=== PATIENT | male | born 2000 | race Hispanic/Latino ===

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

== ENCOUNTER 2023-03-12 10:13 | Emergency (ER) | payer BC ==
--- OUTSIDE RECORDS SUMMARY | 2023-03-12 10:17 | XMS REPORT | Continuity of Care Document ---
:2000 Author Organization [facility] t Address [address] [facility] [address] [place] [address] Care Team Providers Name Role Phone CHUCKY ACOSTA Primary Care Physician Unavailable CARRIE CUELLAR Attending Clinician Unavailable Lab, Ang - Db Attending Clinician Unavailable Carrie Nava Attending Clinician CHUCKY ACOSTA Attending Clinician Unavailable GAIL JAMISON Attending Clinician Unavailable Gail Jamison MD Attending Clinician [phone] YARIEL DONALDSON Attending Clinician Unavailable Pathology Attending Clinician Unavailable PATHOLOGY Attending Clinician Unavailable Doctor Unassigned, [place] Attending Clinician Unavailable Chucky Valencia Attending Clinician Dian DAVISON, Sendil K.H. Attending Clinician GIDEON BIGGS K.H. Attending Clinician Unavailable REGINA RESTREPO Attending Clinician Unavailable Regina Restrepo MD Attending Clinician Edelmira Vargas MD Attending Clinician EDELMIRA VARGAS Attending Clinician Unavailable Evin Nick Attending Clinician [phone] Draw, [facility] Attending Clinician Unavailable George Arango MD Attending Clinician EVIN NICHOLSON Attending Clinician Unavailable Filomena Oconnor Attending Clinician Unavailable LIZZ LUNA Attending Clinician Unavailable Ang-Ped_Temp Attending Clinician Unavailable Victor Manuel SPORTS MEDICINE MASSEUR, Lizz Attending Clinician Margi Stokes Attending Clinician ALICE CHAND Attending Clinician Unavailable Alice Chen Attending Clinician Braeden Morales Attending Clinician [facility] Attending Clinician Unavailable BRAEDEN MARTINEZ Attending Clinician Unavailable MARGI GRIMALDO Attending Clinician Unavailable ALICE CHAND Admitting Clinician Unavailable Payers Payer Name Policy Type Policy Number Effective Date Expiration Date S oni BCBS FED SELECT [id number] 2019 00:00:00 [employer] [id number] 2016 00:00:00 CARE CHIP Problems Condition Condition Condition Status Onset Resolution Last Treating Co mments Source Name Details Category Date Date Treatment Clinician Date Anxiety Anxiety Disease Active Univers 4-04 ity of 00:00: [place] [address] Medical Branch Panic Panic Disease Active 2021-04 Univers attacks attacks 1-29 ity of 00:00: [place] [address] Medical Branch Encounter Encounter Disease Active Uni vers to to 4-19 ity of establish establish 00:00: [address] Dizziness Dizziness Disease Active Uni vers 4-19 ity of 00:00: [place] [address] Medical [place] Anxiety Anxiety Disease Active Last Univers disorder, disorder, 07-01 Assessmen i ty of unspecifie unspecifie 00:00: t & Plan: [place] d type d type 00 [facility] Medical g of this Branch note might be different from the original. Oleg is having breakthro ugh anxiety and "panic attacks" in spite of taking fluoxetin e 20 mg daily. He has some nausea/vo miting with episodes. Denies abdominal pain. He denies SI/HI. 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 His father is his closest support person.Pl an:After discussin g treatment options - decided to switch to escitalop gary 20 mg daily.Pot ential side effects reviewed. Recommend ed that he resume counselin g and gave resources .Continue to try to improve the health of the diet.Regu lar exercise can also be helpful.W ill schedule short term follow up. History of History of Disease Active U nivers being being 3-06 ity of tatooed tatooed 00:00: [place] [address] Medical Branch Elevated Elevated Disease Active Last Unive rs blood blood 3-06 Assessmen ity of pressure pressure 00:00: t & Plan: Ron[place] as reading reading 00 Formattin Medic al without without g of this Branc h diagnosis diagnosis note of of might be hypertensi hypertensi different on on from the original. He has history of elevated blood pressure readings - cardiolog y saw him and feels this is related to his anxiety. Normal cardiac work up. Plan:Will monitor as we optimize his treatment for anxiety.A void caffiene and reduce salt in the diet. Allergies, Adverse Reactions, Alerts Allergy Allergy Status Severity Reaction(s) Onset Inactive Treating Comm ents Source Name Type Date Date Clinician NO KNOWN Drug Active Univers ALLERGIE Class ity of [facility] [place] [facility] Social History Social Habit Start Date Stop Date Quantity Comments Source History of tobacco Cigarette Smoker University of use [place] [facility] History SDUT University o f Alcohol Comment [place] [facility] Gender identity Universit y of [facility] Branch Sexual orientation Univer sity of [place] [facility] History SDUT University o f Alcohol Std Drinks [place] [facility] History SDUT University o f Alcohol Binge [place] [facility] Alcohol intake 2023-01-13 2023-01-13 Lifetime University of 00:00:00 00:00:00 non-drinker [facility] (finding) Branch Exposure to 2022-08-19 2022-08-29 Not sure University SARS-CoV-2 (event) 00:00:00 11:41:00 [place] [facility] History of Social 2022-07-30 2022-07-30 Univers ity of function 00:00:00 00:00:00 [place] [facility] Tobacco use and 2021-08-14 2021-08-14 Smokeless Universit y of exposure 00:00:00 00:00:00 tobacco non-user [facility] dical Branch History SDOH 2019-07-02 2019-07-02 1 University o f Alcohol Frequency 00:00:00 00:00:00 [facility] edical Branch Sex Assigned At [birth year] Universit y of 00:00:00 00:00:00 [facility] Smoking Status Start Date Stop Date Source Occasional tobacco smoker 2021-08-14 00:00[facility] Medications Ordered Filled Start Stop Current Ordering Indication Dosage Frequency Signature Comments Components Source Medication Medication Date Date Medication? Clinician (SIG) Name Name FLUoxetine Yes [id number] 20mg Take 1 U nivers 20 mg 9-18 tablet by ity of tablet 00:00: mouth in [place] the Medical morning. Branch FLUoxetine Yes [id number] 20mg Take 1 U nivers 20 mg 9-18 tablet by ity of tablet 00:00: mouth in [place] the Medical morning. Branch FLUoxetine Yes [id number] 20mg Take 1 U nivers 20 mg 9-18 tablet by ity of tablet 00:00: mouth in [place] the Medical morning. Branch omeprazole Yes [id number] 40mg Take 1 Univers 40 mg 8-16 capsule by ity of capsule 00:00: mouth in [place] the Medical morning. Branch FLUoxetine Yes [id number] 10mg Take 1 U nivers 10 mg 8-16 tablet by ity of tablet 00:00: mouth in [place] the Medical morning. Branch ondansetron Yes [id number] 4mg Take 1 Univers 4 mg 8-16 tablet by ity of disintegrat 00:00: mouth [place] ing tablet 00 every 8 Medica l (eight) Branch hours as needed for Nausea and Vomiting (N/V). omeprazole Yes [id number] 40mg Take 1 Univers 40 mg 8-16 capsule by ity of capsule 00:00: mouth in [place] the Medical morning. Branch FLUoxetine 0 Yes [id number] 10mg Take 1 U nivers 10 mg 8-16 tablet by ity of tablet 00:00: mouth in [place] the Medical morning. Branch ondansetron Yes [id number] 4mg Take 1 Univers 4 mg 8-16 tablet by ity of disintegrat 00:00: mouth [place] ing tablet 00 every 8 Medica l (eight) Branch hours as needed for Nausea and Vomiting (N/V). omeprazole 2022-0 Yes [id number] 40mg Take 1 Univers 40 mg 8-16 capsule by ity of capsule 00:00: mouth in [place] 00 the Medical morning. [place] ondansetron 2022-0 Yes [id number] 4mg Take 1 Univers 4 mg 8-16 tablet by ity of disintegrat 00:00: mouth [place] ing tablet 00 every 8 Medica l (eight) Branch hours as needed for Nausea and Vomiting (N/V). omeprazole 2022-0 Yes [id number] 40mg Take 1 Univers 40 mg 8-16 capsule by ity of capsule 00:00: mouth in [place] 00 the Medical morning. [place] ondansetron 2022-0 Yes [id number] 4mg Take 1 Univers 4 mg 8-16 tablet by ity of disintegrat 00:00: mouth [place] ing tablet 00 every 8 Medica l (eight) Branch hours as needed for Nausea and Vomiting (N/V). omeprazole 2022-0 Yes [id number] 40mg Take 1 Univers 40 mg 8-16 capsule by ity of capsule 00:00: mouth in [place] 00 the Medical morning. [place] ondansetron 2022-0 Yes [id number] 4mg Take 1 Univers 4 mg 8-16 tablet by ity of disintegrat 00:00: mouth [place] ing tablet 00 every 8 Medica l (eight) Branch hours as needed for Nausea and Vomiting (N/V). FLUoxetine 2022-0 2022- No [id number] 10mg Take 1 Univers 10 mg 8-16 09-18 tablet by ity of tablet 00:00: 00:00 mouth in [place] 00 :00 the Medical morning. [place] FLUoxetine 2022-0 2022- No [id number] 10mg Take 1 Univers 10 mg 8-16 09-18 tablet by ity of tablet 00:00: 00:00 mouth in [place] 00 :00 the Medical morning. [place] ESCITALOPRA 2022-0 Yes [id number] TAKE 1 Univers M OXALATE 4-07 TABLET BY ity o f 10 mg 00:00: MOUTH [place] tablet 00 EVERY DAY Medical IN THE [place] MORNING ESCITALOPRA 2022-0 Yes [id number] TAKE 1 Univers M OXALATE 4-07 TABLET BY ity o f 10 mg 00:00: MOUTH [place] tablet 00 EVERY DAY Medical IN THE [place] MORNING ESCITALOPRA 2022-0 Yes [id number] TAKE 1 Univers M OXALATE 4-07 TABLET BY ity o f 10 mg 00:00: MOUTH [place] tablet 00 EVERY DAY Medical IN THE [facility] ESCITALOPRA 2022- No [id number] TAKE 1 Univers M OXALATE 4-07 08-16 TABLET BY ity of 10 mg 00:00: 00:00 MOUTH [place] tablet 00 :00 EVERY DAY Medical IN THE [facility] ESCITALOPRA 2022- No [id number] TAKE 1 Univers M OXALATE 4-07 08-16 TABLET BY ity of 10 mg 00:00: 00:00 MOUTH [place] tablet 00 :00 EVERY DAY Medical IN THE [facility] escitalopra 2021-04 Yes [id number] 10mg Take 1 Univers m oxalate 1-29 tablet by ity o f 10 mg 00:00: mouth in [place] tablet 00 the Medical morning. [place] escitalopra 2021-04 Yes [id number] 10mg Take 1 Univers m oxalate 1-29 tablet by ity o f 10 mg 00:00: mouth in [place] tablet 00 the Medical morning. [place] escitalopra 2021-04 Yes [id number] 10mg Take 1 Univers m oxalate 1-29 tablet by ity o f 10 mg 00:00: mouth in [place] tablet 00 the Medical morning. [place] escitalopra 2021-04 Yes [id number] 10mg Take 1 Univers m oxalate 1-29 tablet by ity o f 10 mg 00:00: mouth in [place] tablet 00 the Medical morning. [place] escitalopra 2021-04 Yes [id number] 10mg Take 1 Univers m oxalate 1-29 tablet by ity o f 10 mg 00:00: mouth in [place] tablet 00 the Medical morning. [place] escitalopra 2021-04 Yes [id number] 10mg Take 1 Univers m oxalate 1-29 tablet by ity o f 10 mg 00:00: mouth in [place] tablet 00 the Medical morning. [place] escitalopra 2021-04- No [id number] 10mg Take 1 Univers m oxalate 1-29 04-07 tablet by ity of 10 mg 00:00: 00:00 mouth in [place] tablet 00 :00 the Medical morning. [place] busPIRone 2021-04- No [id number] 10mg Take 1 Univers 10 mg 1-29 12-30 tablet by ity of tablet 00:00: 05:59 mouth 2 [place] 00 :00 (two) Medical times [place] daily as needed (anxiety) for up to 30 days. busPIRone 2021-04- No [id number] 10mg Take 1 Univers 10 mg 1-29 12-30 tablet by ity of tablet 00:00: 05:59 mouth 2 [place] 00 :00 (two) Medical times Branch daily as needed (anxiety) for up to 30 days. busPIRone 2021-04- No [id number] 10mg Take 1 Univers 10 mg 1-29 12-30 tablet by ity of tablet 00:00: 05:59 mouth 2 [place] 00 :00 (two) Medical times Branch daily as needed (anxiety) for up to 30 days. escitalopra 2021-04 Yes [id number] 10mg Take 1 Univers m oxalate 0-04 tablet by ity o f 10 mg 00:00: mouth in [place] tablet 00 the Medical morning. [place] escitalopra 2021-04 Yes [id number] 10mg Take 1 Univers m oxalate 0-04 tablet by ity o f 10 mg 00:00: mouth in [place] tablet 00 the Medical morning. [place] escitalopra 2021-04 Yes [id number] 10mg Take 1 Univers m oxalate 0-04 tablet by ity o f 10 mg 00:00: mouth in [place] tablet 00 the Medical morning. [place] escitalopra 2021-04- No [id number] 10mg Take 1 Univers m oxalate 0-04 11-29 tablet by ity of 10 mg 00:00: 00:00 mouth in [place] tablet 00 :00 the Medical morning. [place] escitalopra 2021-04- No [id number] 10mg Take 1 Univers m oxalate 0-04 11-29 tablet by ity of 10 mg 00:00: 00:00 mouth in [place] tablet 00 :00 the Medical morning. [place] escitalopra 2021-04- No [id number] 10mg Take 1 Univers m oxalate 0-04 11-29 tablet by ity of 10 mg 00:00: 00:00 mouth in [place] tablet 00 :00 the Medical morning. Branch escitalopra Yes [id number] 10mg Take 1 Univers m oxalate 7-05 tablet by ity o f 10 mg 00:00: mouth [place] tablet 00 daily. Medical Branch escitalopra Yes [id number] 10mg Take 1 Univers m oxalate 7-05 tablet by ity o f 10 mg 00:00: mouth [place] tablet 00 daily. Medical Branch escitalopra Yes [id number] 10mg Take 1 Univers m oxalate 7-05 tablet by ity o f 10 mg 00:00: mouth [place] tablet 00 daily. Medical Branch escitalopra Yes [id number] 10mg Take 1 Univers m oxalate 7-05 tablet by ity o f 10 mg 00:00: mouth [place] tablet 00 daily. Medical Branch escitalopra 2021- No [id number] 10mg Take 1 Univers m oxalate 7-05 10-04 tablet by ity of 10 mg 00:00: 00:00 mouth [place] tablet 00 :00 daily. Medical Branch escitalopra 2021- No [id number] 10mg Take 1 Univers m oxalate 7-05 10-04 tablet by ity of 10 mg 00:00: 00:00 mouth [place] tablet 00 :00 daily. Medical Branch escitalopra 2021- No [id number] 10mg Take 1 Univers m oxalate 7-05 10-04 tablet by ity of 10 mg 00:00: 00:00 mouth [place] tablet 00 :00 daily. Medical Branch Vital Signs Vital Name Observation Time Observation Value Comments Source Systolic blood 2023-01-13 19:21:00 123 mm[Hg] Univer sity of [facility] Diastolic blood 2023-01-13 19:21:00 73 mm[Hg] Unive rsity of [facility] Heart rate 2023-01-13 19:21:00 75 /min [facility] Body height 2023-01-13 19:21:00 166.4 cm [facility] Body weight 2023-01-13 19:21:00 63.685 kg [facility] BMI 2023-01-13 19:21:00 23.01 kg/m2 [facility] Oxygen saturation in 2023-01-13 19:21:00 97 /min [facility] Arterial blood by [facility] Pulse oximetry Branch Systolic blood 2022-12-11 19:50:00 118 mm[Hg] Univer sity of [facility] Diastolic blood 2022-12-11 19:50:00 60 mm[Hg] Unive rsity of pressure [place] [facility] Heart rate 2022-12-11 19:50:00 60 /min Universi ty of [place] [facility] Respiratory rate 2022-12-11 19:50:00 18 /min Univ ersity of [place] [facility] Body height 2022-12-11 19:50:00 165.1 cm Universi ty of [place] [facility] Body weight 2022-12-11 19:50:00 63.504 kg Universi ty of [place] [facility] BMI 2022-12-11 19:50:00 23.30 kg/m2 Universi ty of [place] [facility] Oxygen saturation in 2022-12-11 19:50:00 97 /min University of Arterial blood by [place] [facility] jimi Pulse oximetry Branch Systolic blood 2022-07-30 21:07:00 125 mm[Hg] Univer sity of pressure [place] [facility] Diastolic blood 2022-07-30 21:07:00 75 mm[Hg] Unive rsity of pressure [place] [facility] Heart rate 2022-07-30 21:07:00 66 /min Universi ty of [place] [facility] Body temperature 2022-07-30 21:07:00 36.72 Negrita Univ ersity of [place] [facility] Body height 2022-07-30 21:07:00 160 cm Universi ty of [place] [facility] Body weight 2022-07-30 21:07:00 64.864 kg Universi ty of [place] [facility] BMI 2022-07-30 21:07:00 25.33 kg/m2 Universi ty of [place] [facility] Oxygen saturation in 2022-07-30 21:07:00 97 /min University of Arterial blood by [facility] Pulse oximetry Branch Systolic blood 2022-03-26 17:05:00 133 mm[Hg] Univer sity of pressure [place] [facility] Diastolic blood 2022-03-26 17:05:00 75 mm[Hg] Unive rsity of pressure [place] [facility] Heart rate 2022-03-26 17:05:00 77 /min Universi ty [facility] [place] [facility] Body height 2022-03-26 17:05:00 160 cm Universi ty [facility] [place] [facility] Body weight 2022-03-26 17:05:00 63.277 kg Universi ty [facility] [place] [facility] BMI 2022-03-26 17:05:00 24.71 kg/m2 Universi ty of [place] [facility] Oxygen saturation in 2022-03-26 17:05:00 96 /min University of Arterial blood by [facility] Pulse oximetry Branch Systolic blood 2022-01-29 15:55:00 111 mm[Hg] Univer sity of pressure [facility] Branch Diastolic blood 2022-01-29 15:55:00 67 mm[Hg] Unive rsity of pressure [facility] Branch Heart rate 2022-01-29 15:55:00 77 /min Universi ty of [place] [facility] Body height 2022-01-29 15:55:00 165.1 cm Universi ty of [place] [facility] Body weight 2022-01-29 15:55:00 63.141 kg Universi ty of [place] [facility] BMI 2022-01-29 15:55:00 23.16 kg/m2 Universi ty of [facility] Oxygen saturation in 2022-01-29 15:55:00 98 /min University of Arterial blood by [facility] Pulse oximetry Branch Systolic blood 2021-08-14 16:20:00 130 mm[Hg] Univer sity of pressure [facility] Branch Diastolic blood 2021-08-14 16:20:00 66 mm[Hg] Unive rsity of pressure [facility] Branch Heart rate 2021-08-14 16:20:00 65 /min Universi ty of [place] [facility] Body height 2021-08-14 16:20:00 165.1 cm Universi ty of [place] [facility] Body weight 2021-08-14 16:20:00 63.56 kg Universi ty [facility] [place] [facility] BMI 2021-08-14 16:20:00 23.32 kg/m2 Universi ty of [facility] Branch Body mass index 2021-08-14 16:20:00 58.42 % Unive rsity of (BMI) [Percentile] [place] Med ical Per age and sex Branch Oxygen saturation in 2021-08-14 16:20:00 97 /min University of Arterial blood by [facility] Pulse oximetry Branch Procedures Procedure Date / Time Performing Clinician Source Performed 2022-12-11 20:21:54 Owen Jamison o f [place] CONJUGATE (PREVNAR 20) Gail Zheng B ranch VACCINE [facility] PATIENT FINANCIAL 2022-08-29 16:42:46 Doctor Unassigned, No [facility] POLICY Name Medical Branch ASSIGNMENT OF BENEFITS 2022-01-29 15:51:23 Doctor Unassigned, No [facility] Name [facility] MEDICAL 2021-08-24 05:01:00 Doctor Unassigned, No [facility] RELEASE/CLEARANCE FORMS Name [facility] Encounters Start End Encounter Admission Attending Care Care Encounter Source Date/Time Date/Time Type Type Clinicians Facility Department ID 2023-04-14 2023-04-14 Outpatient R POLO [facility] [id number] Univers 14:30:00 14:30:00 CARRIE ortiz [facility] 2023-01-14 2023-01-14 Crap Game Box Person Lab, Ang - Db [facility] 1.2.840.1 [id number] Univers 08:45:00 09:00:00 Visit Carrie Cuellar 350.1.13.10 ity of [place] 4.2.7.2.686 Ronny as ANGELA?BLEA [id number] Ct carloskitty [facility] [address] [place] MEDICAL OFFICE [facility] 2023-01-14 2023-01-14 Outpatient R [facility] [id number] Univers 08:45:00 08:50:12 CARRIE ity [facility] 2023-01-13 2023-01-13 [facility] 1.2.840.114 [id number] Univers 14:30:00 14:55:38 Visit Carrie ANDERSON 350.1.13.10 it y of [place] 4.2.7.2.686 Ronny as ANGELA?BLEA [id number] Ct [address] MEDICAL OFFICE [facility] 2023-01-13 2023-01-13 Outpatient R [facility] [id number] Univers 14:30:00 14:55:38 CARRIE cisnerossilviano [facility] 2022-12-25 2022-12-25 Outpatient R KARLA [facility] [id number] Univers 15:30:00 15:30:00 CHUCKY ortiz [facility] 2022-12-11 2022-12-11 Outpatient R YAQUELIN [facility] [id number] Univers 14:40:00 15:29:54 , GAIL shore [facility] 2022-12-11 2022-12-11 Office Yaquelin [facility] 1.2.840.114 [id number] Univers 14:40:00 15:29:54 Visit , Gail [facility] [id number] ity of [place] 4.2.7.2.686 Ronny as ANGELA?BLEA [id number] [address] MEDICAL OFFICE [facility] 2022-08-29 2022-08-29 Crap Game Box Person Lab, Ang - Db [facility] 1.2.840.1 [id number] Univers 12:15:00 12:30:00 Visit Pathology HEALTH 350.1.13.10 ity of [place] 4.2.7.2.686 Ronny as ANGELA?BLEA [id number] [address] OFFICE [facility] 2022-08-29 2022-08-29 Outpatient R PATHOLOGY [facility] [id number] Univers 12:15:00 12:15:00 ity of [facility] 2022-08-29 2022-08-29 Orders Doctor JILLIAN 1.2.840.114 [id number] Univers 00:00:00 00:00:00 Only Unassigned, VALE 350.1.13.10 ity of [place] [facility] 4.2.7.2.686 Ronny as [id number] [address] 2022-08-02 2022-08-02 Refill Karla [facility] 1.2.840.114 [id number] Univers 00:00:00 00:00:00 Chucky HEALTH [id number] it y of [place] 4.2.7.2.686 Ornny as ANGELA?BLEA [id number] [address] OFFICE [facility] 2022-07-30 2022-07-30 Crap Game Box Person Lab, Ang - Db [facility] 1.2.840.1 [id number] Univers 16:30:00 16:45:00 Visit Chucky Acosta HEALTH 350.1.13.10 [facility] 4.2.7.2.686 Ronny as ANGELA?BLEA [id number] [address] OFFICE [facility] 2022-07-30 2022-07-30 Outpatient R KARLA [facility] [id number] Univers 16:00:00 16:32:16 CHUCKY ortiz [facility] 2022-07-30 2022-07-30 [facility] 1.2.840.114 [id number] Univers 16:00:00 16:32:16 Visit Chucky ANDERSON 350.1.13.10 it [facility] 4.2.7.2.686 Ronny as ANGELA?BLEA [id number] [address] OFFICE [facility] 2022-07-15 2022-07-15 Outpatient R KARLA [facility] [id number] Univers 08:30:00 08:30:00 CHUCKY ortiz [facility] 2022-05-24 2022-05-24 [facility] [id number] Univers 11:00:00 11:00:00 CHUCKY ortiz [facility] 2022-03-26 2022-03-26 [facility] [id number] Univers 11:00:00 11:20:04 CHUCKY ortiz [facility] 2022-03-26 2022-03-26 [facility] 1.2.840.114 [id number] Univers 11:00:00 11:20:[address] [facility] [id number] it [facility] [id number] Ronny as ANGELA?BLEA [id number] [address] OFFICE [facility] 2022-01-29 2022-01-29 [facility] [id number] Univers 11:00:00 11:21:02 CHUCKY ortiz [facility] 2022-01-29 2022-01-29 [facility] 1.2.840.114 [id number] Univers 11:00:00 11:21:02 Visit Chucky ANDERSON 350.1.13.10 it y of [place] 4.2.7.2.686 Ronny as ANGELA?BLEA [id number] [address] OFFICE [facility] 2022-01-29 2022-01-29 Orders Doctor WALSH 1.2.840.114 [id number] Univers 00:00:00 00:00:00 Only Unassigned, VALE 350.1.13.10 ity of [place] [facility] 4.2.7.2.686 Ronny as [id number] [address] 2021-10-10 2021-10-10 Outpatient R KARLA [facility] [id number] Univers 10:30:00 10:30:00 CHUCKY ortiz [facility] 2021-10-02 2021-10-02 Outpatient R KARLA [facility] [id number] Univers 08:30:00 08:30:00 CHUCKY diana [facility] 2021-10-02 2021-10-02 Outpatient R KARLA [facility] [id number] Univers 08:30:00 08:30:00 CHUCKY ortiz [facility] 2021-10-01 2021-10-01 Outpatient R [facility]LA [facility] [id number] Univers 09:30:00 09:30:00 CHUCKY [facility] 2021-08-24 2021-08-24 Orders Doctor WALSH 1.2.840.114 [id number] Univers 00:00:00 00:00:00 Only Unassigned, VALE 350.1.13.10 ity of [place] [facility] 4.2.7.2.686 Ronny as [id number] [address] 2021-08-23 2021-08-23 Telephone Dian AZSHANT [id number] Univers 00:00:00 00:00:00 Sendluisa [place] 350.1.13.10 ity [facility] 4.2.7.2.686 [place] [id number] [place] dical [facility] 059 [facility] 2021-08-15 2021-08-15 [facility] [id number] Univers 16:30:00 16:30:00 SENDIL ity [facility] 2021-08-15 2021-08-15 [facility] [id number] Univers 11:00:35 11:44:00 [facility]14 2021-08-14 Office Dian AZSHANT 1.2.840.114 [id number] Univers 11:30:00 13:29:12 Visit Gideon MarieDeborahImaniDeborah [facility] [id number] ity of [facility] [id number] [phone] Ct dewayne FINE 059 [facility] 2021-08-14 2021-08-14 Outpatient R DIAN [facility] [id number] Univers 11:30:00 11:30:00 SENDIL ameliasilviano [facility] 2021-08-14 2021-08-14 Crap Game Box Person Lab, Ang - [facility] 1.2.840.1 [id number] Univers 09:45:00 10:00:[address] [facility] [id number] ity of [facility] [id number] Ronny as ANGELA?BLEA [phone] Ct dewayne [place] 353 [facility] OFFICE [facility] 2021-08-14 2021-08-14 Outpatient R KARLA [facility] [id number] Univers 08:30:00 09:33:33 CHUCKY diana [facility] 2021-08-14 2021-08-14 [facility] 1.2.840.114 [id number] Univers 08:30:00 09:33:[address] [facility] [id number] it y of [facility] [id number] Ronny as ANGELA?BLEA [phone] [facility] [place] 044 [facility] OFFICE [facility] 2021-08-14 2021-08-14 Outpatient [facility] [id number] Univers 08:30:00 09:33:33 CHUCKY diana [facility] 2020-11-29 2020-11-29 Outpatient R [facility] [id number] Univers 15:40:00 15:40:00 REGINA ortiz [facility] 2020-10-30 2020-10-30 Office [facility] 1.2.840.114 [id number] Univers 15:58:00 16:40:07 Visit Regina Morgan [id number] ity of [id number] [phone] [address] 2020-10-30 2020-10-30 Outpatient R LAURO [facility] [id number] Univers 16:00:00 16:00:00 REGINA ameliasilviano [facility] 2020-10-26 2020-10-26 Outpatient Vida RESTREPO [facility] [id number] Univers 09:30:00 09:30:00 REGINAKYLER ortiz [facility] 2020-10-19 2020-10-19 Telephone Lauro [facility] [id number] Univers 00:00:00 00:00:00 Regina [place] [id number] it[id number] [phone] [address] 2020-08-28 2020-08-28 Office [facility] 1.2.840.114 [id number] Univers 15:48:02 16:22:12 Visit Regina A [place] [id number] ity of [id number] [phone] [address] 2020-08-28 2020-08-28 Outpatient Vida RESTREPO [facility] [id number] Univers 15:40:00 15:40:00 REGINAKYLER ortiz [facility] 2020-08-01 2020-08-01 Outpatient Vida RESTREPO [facility] [id number] Univers 10:30:00 10:30:00 REGINA itsilviano [facility] 2020-07-25 2020-07-25 Office [facility] 1.2.840.114 [id number] 08:32:50 09:10:42 Visit Regina A [place] [id number] [place] [id number] Professio [phone] [address] 2020-07-25 2020-07-25 Office [facility] 1.2.840.114 [id number] Univers 08:32:50 09:10:42 Visit Regina A [place] [id number] ity of [id number] [phone] Ct dical nal 225 [facility] 2020-07-25 2020-07-25 Outpatient R LAURO [facility] [id number] Univers 08:30:00 08:30:00 REGINA ity of [facility] 2020-07-18 2020-07-18 Office [facility] 1.2.840.114 [id number] Univers 13:05:47 13:46:18 Visit Edelmira Morgan [id number] ity of [id number] [phone] Ct dical nal 059 [facility] 2020-07-18 2020-07-18 Outpatient R GABINO [facility] [id number] Univers 13:20:00 13:20:00 EDELMIRA ortiz o f [facility] 2020-07-18 2020-07-18 Telephone [facility] 1.2.446.011 [id number] Univers 00:00:00 00:00:00 Regina A [place] [id number] ity of [id number] [phone] Ct dicnh nal [address] [place] [address] 2020-06-26 2020-06-26 Telephone [facility] [id number] Univers 00:00:00 00:00:00 Regina A [place] [id number] ity of [id number] [phone] Ct dical nal 225 [facility] 2020-06-01 2020-06-01 Letter [facility] 1.2.840.114 [id number] Univers 00:00:00 00:00:00 (Out) Regina A [place] [id number] it[id number] [phone] Ct dical nal 225 [facility] 2020-05-03 2020-05-03 Office [facility] 1.2.840.114 [id number] Univers 10:03:03 11:27:46 Visit Regina [place] 350.1.13.10 ity of [place] [id number] [phone] [place] [address] [address] [facility] 2020-05-03 2020-05-03 Outpatient Vida RESTREPO [facility] [id number] Univers 10:30:00 10:30:00 REGINAKYLER ortiz [facility] 2020-04-26 2020-04-26 Outpatient Vida RESTREPO [facility] [id number] Univers 16:00:00 16:00:00 REGINA itsilviano [facility] 2020-01-16 2020-01-16 Refill Lauro [facility] 1.2.840.114 [id number] Univers 00:00:00 00:00:00 Reginakyler Morgan [id number] it[place] of [id number] [phone] [address] 2019-11-17 2019-11-17 Telephone [facility] 1.2.840.114 [id number] Univers 00:00:00 00:00:00 , [facility] [id number] [id number] [phone] [address] Office Building 2019-10-26 2019-10-26 Outpatient Vida RESTREPO [facility] [id number] Univers 12:30:00 12:30:00 REGINA ortiz [facility] 2019-10-26 2019-10-26 Telemedici [facility] 1.2.840.114 [id number] Univers 08:27:16 08:42:16 ne Visit Regina Morgan [id number] it[place] of [id number] [phone] [address] 2019-10-19 2019-10-19 Outpatient Vida RESTREPO [facility] [id number] Univers 15:20:00 15:20:00 REGINA itsilviano [facility] 2019-10-13 2019-10-13 Reffadumo Restrepo [facility] 1.2.840.114 [id number] Univers 00:00:00 00:00:00 Regina Morgan [id number] ity of [id number] [phone] Ct dical nal 225 [facility] 2019-10-04 2019-10-04 Crap Game Box Person Draw, Clc-Bls Lab [facility] 1.2.8 40.114 [id number] Univers 12:02:42 12:17:42 [facility] 350.1.13 .10 [place] [phone] [facility] [address] 2019-10-04 2019-10-04 [facility] 1.2.840.114 [id number] Univers 10:21:26 12:09:55 Visit , [facility] [id number] [id number] [phone] [facility] [address] 2019-10-04 2019-10-04 Office George Arango [facility] 1.2.840.114 [id number] Univers 11:09:10 11:39:10 Visit [facility] [id number] it [place] [phone] [facility] [address] 2019-10-04 2019-10-04 Outpatient R [facility] [id number] Univers 10:30:00 10:30:00 , [facility] ity of [facility] 2019-09-21 2019-09-21 Outpatient R [facility] [id number] Univers 14:00:00 14:00:00 ity of [facility] 2019-09-17 2019-09-17 Patient Oconnor, [facility] 1.2.840.114 [id number] Univers 00:00:00 00:00:[address] [facility] [id number] i ty of [place] 4.2.7.2.686 Ronny as Professio [phone] Me dical nal [address] One 2019-09-15 2019-09-15 Outpatient R LAURO [facility] [id number] Univers 15:00:00 15:00:00 REGINA ity [facility] 2019-09-14 2019-09-14 Telephone [facility] [id number] Univers 00:00:00 00:00:00 Regina Morgan 350.1.13.10 ity of [id number] [facility] [phone] Ct dical nal 225 [facility] 2019-09-07 2019-09-07 Outpatient R LIZZ LUNA [facility] [id number] Univers 10:00:00 10:00:00 ity of [facility] 2019-09-07 2019-09-07 Telemedici Ang-Ped_Temp [facility] 1.2.840.11 [id number] Univers 08:04:34 09:28:10 ne Visit Lizz Luna RECOVERY AGENT 350.1.13.10 ity of [place] [id number] Ronny as MATERNAL [phone] Med ical & CHILD [address] [place] [address] 2019-09-07 2019-09-07 Telephone [facility] 1.2.576.884 [id number] Univers 00:00:00 00:00:00 Margi RECOVERY AGENT [id number] it y of [place] [id number] Ronny as MATERNAL [phone] Med [facility] & CHILD [address] [place] [address] 2019-09-01 2019-09-01 Outpatient R MANNIE [facility] [id number] Univers 07:53:15 23:59:00 ALICE ity [facility] 2019-09-01 2019-09-01 [facility] 1.2.840.114 [id number] Univers 07:53:00 23:59:00 Encounter [facility] [id number] it[place] of [place] 4.2.7.2.686 [place] [phone] [place] [id number] Branch ([facility]) 2019-08-26 2019-08-26 Telephone [facility] [id number] Univers 00:00:00 00:00:00 Braeden Mk RECOVERY AGENT 350.1.13.10 it y of [place] [id number] Ronny as MATERNAL [phone] [facility] & [address] 2019-08-11 2019-08-11 Outpatient Vida [facility] [id number] Univers 12:30:00 12:30:00 REGINA ortiz [facility] 2019-08-09 2019-08-09 Rashid [facility] 1.2.840.114 [id number] Univers 00:00:00 00:00:00 Margi RECOVERY AGENT 350.1.13.10 it y of [place] [id number] Ronny as MATERNAL [phone] [facility] & [address] 2019-07-21 2019-07-21 Telemedicvinod [facility] 1.2.840.114 [id number] Univers 08:32:14 15:58:11 ne Visit , [facility] 350.1.13.10 [place] [phone] [address] Office [facility] 2019-07-21 2019-07-21 Outpatient Vida NICHOLSON [facility] [id number] Univers 10:30:00 10:30:00 , [facility] 2019-07-21 2019-07-21 Telephone [facility] [id number] Univers 00:00:00 00:00:00 [facility] 350.1.13.10 it [place] of [id number] [phone] [address] Office [facility] 2019-07-21 2019-07-21 Telephone [facility] [id number] Univers 00:00:00 00:00:00 [facility] 350.1.13.10 it [place] [phone] [address] Office [facility] 2019-07-15 2019-07-15 Outpatient R [facility] [id number] Univers 11:20:00 11:20:00 REGINA ortiz [facility] 2019-07-14 2019-07-14 Nurse Visit, SusanRmchp Nurse [facility] 1.2 .840.114 [id number] Univers 08:40:15 08:56:13 Visit Braeden Martinez RECOVERY AGENT [id number] ity of [facility] 4.2.7.2.686 Ronny as MATERNAL [phone] [facility] & CHILD [address] [place] [address] 2019-07-14 2019-07-14 Office Ang-Ped_Temp [facility] 1.2.840.114 [id number] Univers 07:52:30 08:56:01 Visit Braeden Martinez RECOVERY AGENT 350.1.13.10 ity of [facility] [id number] Ronny as MATERNAL [phone] [facility] & [address] 2019-07-14 2019-07-14 Outpatient Vida MARTINEZ [facility] [id number] Univers 08:00:00 08:00:00 [facility] 2019-07-02 2019-07-07 Geraldine Grimaldo [facility] 1.2.840.114 [id number] Univers 14:37:56 08:41:53 Encounter Margi RECOVERY AGENT 350.1.13.10 ity of [facility] [id number] Ronny as MATERNAL [phone] [facility] & [address] 2019-07-02 2019-07-06 Office Oscar [facility] 1.2.840.114 [id number] Univers 13:46:18 08:24:51 Visit Margi RECOVERY AGENT 350.1.13.10 it y of [facility] [id number] Ronny as MATERNAL [phone] [address] 2019-07-02 2019-07-02 Outpatient Vida GRIMALDO [facility] [id number] Univers 13:00:00 13:00:00 MARGI [facility] 2019-07-02 2019-07-02 Domenic [facility] 1.2.840.114 [id number] Univers 00:00:00 00:00:00 Only Unassigned, VALE 350.1.13.10 ity of [place] [facility] 4.2.7.2.686 Ronny as [phone] [facility] 009 Branch Results This patient has no known results.
--- NOTE | 2023-03-12 11:26 | ER ---
Nurse's Notes [facility] Name: Oleg Greenfield Age: 22 yrs Sex: Male : 2000 Arrival Date: 03/12/2023 Time: 10:13 Bed IW1 Private MD: Diagnosis: Viral infection, unspecified Presentation: 03/12 10:27 Chief complaint: Patient states: "2 days ago, I started feeling bad. I started having a mb9 bad headache, congested, cough, and flu symptoms". Coronavirus screen: Vaccine status: Patient reports being unvaccinated. Ebola Screen: No symptoms or risks identified at this time. Initial Sepsis Screen: Does the patient meet any 2 criteria? No. Patient's initial sepsis screen is negative. Does the patient have a suspected source of infection? No. Patient's initial sepsis screen is negative. Risk Assessment: Do you want to hurt yourself or someone else? Patient reports no desire to harm self or others. Onset of symptoms was March 12, 2023. 10:27 Method Of Arrival: Ambulatory 9 10:27 Acuity: TOÑITO 4 mb9 Triage Assessment: 10:29 General: Appears in no apparent distress. Behavior is calm, cooperative, appropriate mb9 for age. Pain: Denies pain. EENT: Nares are clear. Neuro: Damon Agitation-Sedation Scale (RASS): 0 - Alert and Calm Level of Consciousness is awake, alert, obeys commands, Oriented to person, place, time, situation, Appropriate for age. Cardiovascular: Patient's skin is warm and dry. Respiratory: Reports cough that is Airway is patent Respiratory effort is even, unlabored, Respiratory pattern is regular, symmetrical. GI: Reports nausea, Patient currently denies diarrhea, vomiting. : No signs and/or symptoms were reported regarding the genitourinary system. Derm: Skin is pink, warm \\T\\ dry. Musculoskeletal: Range of motion: intact in all extremities. Historical: - Allergies: 10: No Known Allergies; mb9 - Home Meds: 10: fluoxetine 20 mg Oral cap 1 cap once daily for Anxiety with Depression [Active]; mb9 - PMHx: 10:29 Anxiety; mb9 - PSHx: 10:29 None; mb9 - Immunization history:: Adult Immunizations up to date. - Social history:: Smoking status: Patient reports the use of cigarette tobacco products, smokes one-half pack cigarettes per day. Assessment: 10:30 Reassessment: see triage assessment. mb9 11:27 Reassessment: No changes from previously documented assessment. Patient and/or family mb9 updated on plan of care and expected duration. Pain level reassessed. Patient is alert, oriented x 3, equal unlabored respirations, skin warm/dry/pink. Vital Signs: 10:27 BP 125 / 65; Pulse 68; Resp 18; Temp 97.8(O); Pulse Ox 100% on R/A; Weight 74.84 kg; mb9 Height 5 ft. 5 in. ; 10:27 Body Mass Index 27.46 (74.84 kg, 165.1 cm) mb9 ED Course: 10:17 Patient arrived in ED. im 10:17 Fitz Powers MD is Attending Physician. ec2 10:27 Arm band placed on. mb9 10:28 COVID-19 SARS RT PCR Sent. bc6 10:28 Influenza Screen (a \\T\\ B) Sent. 6 10:29 Triage completed. mb9 11:27 Gretta Melton, ROSI is Primary Nurse. mb9 11:28 No provider procedures requiring assistance completed. Patient did not have IV access mb9 during this emergency room visit. Administered Medications: No medications were administered Outcome: 11:25 Discharge ordered by . ec2 11:27 Discharged to home ambulatory, mb9 11:27 Condition: stable 11:27 Discharge instructions given to patient, Instructed on discharge instructions, follow up and referral plans. Demonstrated understanding of instructions, follow-up care, medications, Prescriptions given X 1, 11:28 Patient left the ED. mb9 Signatures: Gretta Melton, ROSI RN mb9 Vee Erazo 6 Mary Quintana Fitz Powers MD MD ec2
--- NOTE | 2023-03-12 11:26 | EDPHYS ---
Physician Documentation [facility] Name: Oleg Greenfield Age: 22 yrs Sex: Male : 2000 Arrival Date: 03/12/2023 Time: 10:13 Bed IW1 Private MD: ED Physician Fitz Powers HPI: 03/12 10:31 This 22 yrs old Male presents to ER via Ambulatory with complaints of Flu ec2 Symptoms. 10:31 Patient arrives today due to concern for URI signs and symptoms. States that there have ec2 been multiple sick contacts around him, he is having congestion and cough. Patient reports some occasional nausea, no vomiting, no still p.o. intake. Denies any diarrhea symptoms. Reports he is a smoker. Denies any significant difficulty breathing.. Historical: - Allergies: 10:29 No Known Allergies; mb9 - Home Meds: 10:29 fluoxetine 20 mg Oral cap 1 cap once daily for Anxiety with Depression [Active]; mb9 - PMHx: 10:29 Anxiety; mb9 - PSHx: 10:29 None; mb9 - Immunization history:: Adult Immunizations up to date. - Social history:: Smoking status: Patient reports the use of cigarette tobacco products, smokes one-half pack cigarettes per day. ROS: 10:31 Constitutional: as per hpi ec2 Exam: 10:31 Constitutional: GEN: NAD Head: atraumatic Eyes: EOMI Ears: External ears are ec2 normal. CV: regular rate LUNGS: no respiratory distress, no wheezes, no rales, no rhonchi ABD: non-distended SKIN: no evidence of rashes MSK: no evidence of trauma NEURO: moves all extremities equally Vital Signs: 10:27 BP 125 / 65; Pulse 68; Resp 18; Temp 97.8(O); Pulse Ox 100% on R/A; Weight 74.84 kg; mb9 Height 5 ft. 5 in. ; 10:27 Body Mass Index 27.46 (74.84 kg, 165.1 cm) mb9 MDM: 10:17 Patient medically screened. ec2 10:31 Data reviewed: vital signs. ED course: Patient arrives today for URI signs and ec2 symptoms. Examination remarkable for nontoxic dividual with reassuring vital signs. Will obtain viral swab and reassess the patient. Suspect viral process causing the patient's symptoms. Low suspicion for pneumonia given lack of focal lung sounds. Low suspicion for other process like UTI or meningitis.. 11:19 ED course: Flu and COVID both negative. I suspect viral infection causing this ec2 symptoms. Will discharge home. Return precautions given.. 03/12 10:18 Order name: Influenza Screen (a \T\ B); Complete Time: 11:19 ec2 03/12 10:18 Order name: COVID-19 SARS RT PCR; Complete Time: : ec2 Administered Medications: No medications were administered Disposition Summary: 03/12/23 11:25 Discharge Ordered Notes: Location: Home ec2 Condition: Stable ec2 Diagnosis - Viral infection, unspecified ec2 Discharge Instructions: - Discharge Summary Sheet ec2 - Viral Illness, Adult ec2 Forms: - Work release form ec2 - Medication Reconciliation Form ec2 - Thank You Letter ec2 - Antibiotic Education ec2 - Prescription Opioid Use ec2 - Patient Portal Instructions ec2 - Leadership Thank You Letter ec2 Prescriptions: - Zofran 4 mg Oral Tablet - take 1 tablet ORAL route every 12 hours As needed; 20 tablet; Refills: 0, ec2 Product Selection Permitted Signatures: Dispatcher [employer] Gretta Rider RN RN mb9 Fitz Powers MD MD ec2
[2023-03-12 11:52] VITALS: BP 125/65; TEMP 97.8; O2SAT 100
[2023-03-12] MEDS ORDERED: dilTIAZem HCL 25 MG/5 ML VIAL IV ONE (13:34)
== END 2023-03-12 11:28 | disposition home or self-care (01) ==
LOC: ER 10:13
DX: B34.9 Viral infection, unspecified (principal); Z11.52 Encounter for screening for COVID-19; F17.210 Nicotine dependence, cigarettes, uncomplicated
CPT/HCPCS: 87635; 87804; 99283

== ENCOUNTER 2025-01-23 13:29 | Emergency (ER) | payer SELFPAY ==
--- OUTSIDE RECORDS SUMMARY | 2025-01-23 13:38 | XMS REPORT | Continuity of Care Document ---
Author Name Unknown Address [address] [facility] [place] [address] [facility] [place] Address [address] [facility] [place] [address] Care Team Providers Care Fire Management Specialist Name Role Phone CHUCKY ACOSTA Primary Care Physician Unavailab JULIAN Dunlap Attending Clinician Unavailable [id number] Attending Clinician Unavailable CHUCKY ACOSTA Attending Clinician Unavailable Chucky Valencia Attending Clinician [phone] Doctor Unassigned, [place] Attending Clinician U navailable Lab, Ang - Db Attending Clinician Unavailable MERVAT FONTENOT Attending Clinician UnaANA Nelson Attending Clinician Unavailable ANA MARS Attending Clinician Unavailable Ana Branch Attending Clinician [phone] ANGEL WHITEHEAD Attending Clinician Unavailable Angel Burris Attending Clinician [phone] PAMELLA BELLAMY Attending Clinician Unavailable Pamella Bellamy MD Attending Clinician [phone] ALENA DACOSTA Attending Clinician Unavailable Alena Dacosta NP Attending Clinician [phone] YARIEL DONALDSON Attending Clinician Unavailable CARRIE CUELLAR Attending Clinician Unavailable Lab, Ang - Db Attending Clinician Unavailable Carrie Nava Attending Clinician [phone] GAIL JAMISON Attending Clinician Latia Gail Curiel MD Attending Clinician Pathology Attending Clinician Unavailable PATHOLOGY Attending Clinician Unavailable Doctor Unassigned, [place] Attending Clinician U baldomero Chucky Valencia Attending Clinician [phone] Gideon Biggs MDHDeborah Attending Clinician + [phone] GIDEON BIGGS Attending Clinician UnavailREGINA Florence Attending Clinician UnavailRegina Florence MD Attending Clinician + [phone] Gabino DAVISON, Edelmira Attending Clinician [phone] EDELMIRA LLOYD Attending Clinician Unavailable Evin Nick Attending Clinician + Draw, Clc-Bls Lab Attending Clinician UnavailGeorge Menjivar MD Attending Clinician [phone] EVIN WASHINGTON Attending Clinician UnavaFilomena Rodriguez Attending Clinician Unavailable LUNALIZZ Attending Clinician Unavailable Ang-Ped_Temp Attending Clinician Unavailable Lizz Saldana Attending Clinician [phone] Margi Stokes Attending Clinician [phone] ALICE CHAND Attending Clinician Unavailable Alice Chen Attending Clinician [phone] Braeden Morales Attending Clinician [phone] Visit, Ang-Rmchp Nurse Attending Clinician Unava ilBRAEDEN Viera Attending Clinician Unavailable MARGI MOORE Attending Clinician Unavailable ANA MARS Admitting Clinician Unavailable ANGEL WHITEHEAD Admitting Clinician Unavailable ALICE CHAND Admitting Clinician Unavailable Payers Payer Name Policy Type Policy Number Effective Date Expirati on Date Source [employer] BENEF[employer] SYS/PPO 2 [id number] 2024 00:00:00 [facility] [id number] 2024 00:00:00 [facility] [id number] 2016 00:00:00 Problems Condition Name Condition Details Condition Category Status Onset Date Resolution Date Last Treatment Date Treating Clinician Comments Source Nausea Nausea Disease Active 1-15 00:00: 00 [facility] Anxiety Anxiety Disease Active 4-04 00:00: 00 [facility] Panic attacks Panic attacks Disease Active 2021-04 1-29 00:00: 00 [facility] Encounter to establish care Encounter to establish care Disease Active 08-14 00:00: 00 [facility] Dizziness Dizziness Disease Active 4 00:00: 00 [facility] Encounter to establish care Encounter to establish care Disease Active 08-14 00:00: 00 [facility] Anxiety disorder, unspecifie d type Anxiety disorder, unspecifie d type Disease Active 07-01 00:00: 00 Last Assessmen t & Plan: Formattin g of this note might be different from the original. Oleg is having breakthro ugh anxiety and "panic attacks" in spite of taking fluoxetin e 20 mg daily. He has some nausea/vo miting with episodes. Denies abdominal pain. He denies SI/HI. 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 [facility] History of being tatooed History of being tatooed Disease Active 07-01 00:00: 00 [facility] Elevated blood pressure reading without diagnosis of hypertensi on Elevated blood pressure reading without diagnosis of hypertensi on Disease Active 07-01 00:00: 00 Last Assessmen t & Plan: Formattin g of this note might be different from the original. He has history of elevated blood pressure readings - cardiolog y saw him and feels this is related to his anxiety. Normal cardiac work up. Plan:Will monitor as we optimize his treatment for anxiety.A void caffiene and reduce salt in the diet. [facility] History of drug dependence /abuse History of drug dependence /abuse Disease Resolve d 3-06 00:00: 00 2019-09-25 00:00:00 2019-09-25 12:14:04 [facility] Behavior control problems associated with use of recreation al drug Behavior control problems associated with use of recreation al drug Disease Resolve d -06 00:00: 00 2019-09-25 00:00:00 2019-09-25 12:14:08 [facility] Allergies, Adverse Reactions, Alerts Allergy Name Allergy Type Status Severity Reaction(s) Onset Date Inactive Date Treating Clinician Comments Source NO KNOWN ALLERGIE S Drug Class Active [facility] Social History Social Habit Start Date Stop Date Quantity Comments Source History of tobacco use 2024-07-25 00:00:00 Cigarette Smoker Nya Anton - External Sexual orientation K zeynep Anton - External History SDOH Alcohol Comment Cameron o [facility] Gender identity [facility] History SDOH Alcohol Std Drinks [facility] History SDOH Alcohol Binge [facility] History of Social function 2024-10-25 00:00:00 2024-10-25 00:00:00 Nya Anton - External Sex 2024-10-22 14:32:57 2024-10-22 14:32:57 Male (finding) Nya Anton - External Alcoholic beverage intake 2024-05-12 00:00:00 2024-05-12 00:00:00 Lifetime non-drinker (finding) [facility] Alcohol intake 2023-07-10 00:00:00 2023-07-10 00:00:00 Lifetime non-drinker (finding) [facility] Exposure to SARS-CoV-2 (event) 2022-08-19 00:00:00 2022-08-29 11:41:00 Not sure [facility] Tobacco use and exposure 2021-08-14 00:00:00 2021-08-14 00:00:00 Smokeless tobacco non-user [facility] History SDOH Alcohol Frequency 2019-07-02 00:00:00 2019-07-02 00:00:00 1 [facility] Sex assigned at 2002 00:00:00 2000 00:00:00 Nya Anton - External Smoking Status Start Date Stop Date Source Occasional tobacco smoker 2024-10-25 00:00:00 Nya Anton - External Medications Ordered Medication Name Filled Medication Name Start Date Stop Date Current Medication? Ordering Clinician Indication Dosage Frequency Signature (SIG) Comments Components Source amoxicillin 500 mg tablet 05-14 00:00: 00 05-14 00:00 :00 No [id number] 1000mg Take 2 tablets by mouth in the morning and 2 tablets in the evening. [facility] clarithromy rosa 500 mg tablet 05-14 00:00: 00 05-14 00:00 :00 No [id number] 500mg Take 1 tablet by mouth every 12 (twelve) hours. [facility] pantoprazol e 40 mg EC tablet 05-14 00:00: 00 05-14 00:00 :00 No [id number] 40mg Take 1 tablet by mouth in the morning and 1 tablet in the evening. [facility] SERTraline (ZOLOFT) 50 mg tablet 05-12 00:00: 00 Yes [id number] 50mg Take 1 tablet by mouth in the morning. [facility] busPIRone 10 mg tablet 05-12 00:00: 00 06-12 05:59 :00 No [id number] 10mg Take 1 tablet by mouth 2 (two) times daily as needed (anxiety) for up to 30 days. [facility] cefTRIAXone (ROCEPHIN) injection 500 mg 2023-04 16:45: 00 04-05 16:08 :00 No 500mg 500 mg, Intramuscu lar, ONCE, 1 dose, On Fri04/05/24 at 1045, TARIQ, Reason for Anti-Infec tive: Empiric Therapy for Suspected Infection, Empiric Therapy Site: Pelvic, Duration of therapy: Once (ED) [facility] cefdinir 300 mg capsule 2023-04 2-09 00:00: 00 04-13 05:59 :00 No [id number] 300mg Take 1 capsule by mouth every 12 (twelve) hours for 7 days. [facility] iopamidol (ISOVUE 370-500 mL) injection 100 mL 09-15 04:00: 00 09-15 04:00 :00 No [id number] 100mL 100 mL, Intravenou s, ONCE, 1 dose, On Fri09/15/23 at 2300, Routine [facility] ketorolac (TORADOL) injection 30 mg 09-15 02:45: 00 09-15 02:43 :00 No 30mg 30 mg, Slow IV Push, ONCE, 1 dose, On Fri09/15/23 at 2145, TARIQ [facility] ampicillin- sulbactam (UNASYN) 3 g in NaCl 0.9% (NS) 100 mL MINI-BAG 09-15 02:45: 00 09-15 03:38 :00 No 3g 3 g, IV Piggyback, ONCE, 1 dose, On Fri09/15/23 at 2145, Administer over 30 Minutes, 100 mL, Reason for Anti-Infec tive: Documented Infection, Documented Infection Site: HEENT, Duration of Therapy: Once (ED) [facility] dexamethaso ne sod phos PF injection 10 mg 09-15 01:59: 00 09-15 02:43 :00 No 10mg 10 mg, Slow IV Push, ONCE, 1 dose, On Fri09/15/23 at 2100, 1 mL [facility] amoxicillin -clavulanat e 875-125 mg per tablet 09-15 00:00: 00 05-12 00:00 :00 No [id number] 1{tbl} Take 1 tablet by mouth in the morning and 1 tablet in the evening. [facility] amoxicillin -clavulanat e 875-125 mg per tablet 09-14 00:00: 00 09-15 00:00 :00 No [id number] 1{tbl} Take 1 tablet by mouth in the morning and 1 tablet in the evening. Do all this for 10 days. [facility] ibuprofen (IBU) tablet 600 mg 07-09 11:00: 00 07-09 10:50 :00 No 600mg 600 mg, Oral, ONCE, 1 dose, On Fri07/10/23 at 0600, [facility] acetaminoph en (TYLENOL) tablet 650 mg 07-09 10:45: 00 07-09 10:45 :00 No 650mg 650 mg, Oral, ONCE, 1 dose, On Kailee 07/10/23 at 0545, [facility] ibuprofen (IBU) tablet 600 mg 07-06 19:15: 00 07-06 19:05 :00 No 600mg 600 mg, Oral, ONCE, 1 dose, On 07/07/23 at 1415, [facility] oseltamivir 75 mg capsule 07-06 00:00: 00 07-12 04:59 :00 No [id number] 75mg Take 1 capsule by mouth in the morning and 1 capsule in the evening. Do all this for 5 days. [facility] naproxen 500 mg tablet 07-06 00:00: 00 07-12 04:59 :00 No [id number] 500mg Take 1 tablet by mouth in the morning and 1 tablet in the evening. Take with meals. Do all this for 5 days. [facility] FLUoxetine 20 mg tablet 918 00:00: 00 05-12 00:00 :00 No [id number] 20mg Take 1 tablet by mouth in the morning. [facility] ondansetron 4 mg disintegrat ing tablet 16 00:00: 00 Yes [id number] 4mg Take 1 tablet by mouth every 8 (eight) hours as needed for Nausea and Vomiting (N/V). [facility] omeprazole 40 mg capsule 16 00:00: 00 05-14 00:00 :00 No [id number] 40mg Take 1 capsule by mouth in the morning. [facility] FLUoxetine 10 mg tablet 0 8-16 00:00: 00 01-13 00:00 :00 No [id number] 10mg Take 1 tablet by mouth in the morning. [facility] ESCITALOPRA M OXALATE 10 mg tablet 4-07 00:00: 00 12-11 00:00 :00 No [id number] TAKE 1 TABLET BY MOUTH EVERY DAY IN THE MORNING [facility] escitalopra m oxalate 10 mg tablet 2021-04 00:00: 00 08-02 00:00 :00 No [id number] 10mg Take 1 tablet by mouth in the morning. [facility] busPIRone 10 mg tablet 2021-04 00:00: 00 04-26 05:59 :00 No [id number] 10mg Take 1 tablet by mouth 2 (two) times daily as needed (anxiety) for up to 30 days. [facility] escitalopra m oxalate 10 mg tablet 2021-04 0-04 00:00: 00 03-26 00:00 :00 No [id number] 10mg Take 1 tablet by mouth in the morning. [facility] escitalopra m oxalate 10 mg tablet 7-05 00:00: 00 01-29 00:00 :00 No [id number] 10mg Take 1 tablet by mouth daily. [facility] Immunizations Ordered Immunization Name Filled Immunization Name Date Status Comments Source Flu Injectable MDCK Pres-Free (FLUCELVAX) 2024-05-12 00:00:00 Completed [facility] Pneumococcal 20 Conjugate, PCV20 (Prevnar 20) 2022-12-11 00:00:00 Completed [facility] Pneumococcal 20 Conjugate, PCV20 (Prevnar 20) 2022-12-11 00:00:00 Completed [facility] Pneumococcal 20 Conjugate, PCV20 (Prevnar 20) 2022-12-11 00:00:00 Completed [facility] Pneumococcal 20 Conjugate, PCV20 (Prevnar 20) 2022-12-11 00:00:00 Completed [facility] Influenza Virus Vaccine Quad .5 mL IM 6+ MO 2020-05-03 00:00:00 Completed [facility] Influenza Virus Vaccine Quad .5 mL IM 6+ MO 2020-05-03 00:00:00 Completed [facility] Influenza Virus Vaccine Quad .5 mL IM 6+ MO 2020-05-03 00:00:00 Completed [facility] Influenza Virus Vaccine Quad .5 mL IM 6+ MO 2020-05-03 00:00:00 Completed [facility] Influenza Virus Vaccine Quad .5 mL IM 6+ MO 2020-05-03 00:00:00 Completed [facility] Influenza Virus Vaccine Quad .5 mL IM 6+ MO 2020-05-03 00:00:00 Completed [facility] Influenza Virus Vaccine Quad .5 mL IM 6+ MO 2020-05-03 00:00:00 Completed [facility] Influenza Virus Vaccine Quad .5 mL IM 6+ MO 2020-05-03 00:00:00 Completed [facility] Influenza Virus Vaccine Quad .5 mL IM 6+ MO 2020-05-03 00:00:00 Completed [facility] Influenza Virus Vaccine Quad .5 mL IM 6+ MO 2020-05-03 00:00:00 Completed [facility] Influenza Virus Vaccine Quad .5 mL IM 6+ MO 2020-05-03 00:00:00 Completed [facility] Influenza Virus Vaccine Quad .5 mL IM 6+ MO 2020-05-03 00:00:00 Completed [facility] Influenza Virus Vaccine Quad .5 mL IM 6+ MO (FLUZONE/FLULAVAL/FL UARIX) 2020-05-03 00:00:00 Completed [facility] Influenza Virus Vaccine Quad .5 mL IM 6+ MO (FLUZONE/FLULAVAL/FL UARIX) 2020-05-03 00:00:00 Completed [facility] Influenza Virus Vaccine Quad .5 mL IM 6+ MO (FLUZONE/FLULAVAL/FL UARIX) 2020-05-03 00:00:00 Completed Meningococcal B, OMV 2019-09-15 00:00:00 Completed [facility] Meningococcal B, OMV 2019-09-15 00:00:00 Completed [facility] Meningococcal B, OMV 2019-09-15 00:00:00 Completed [facility] Meningococcal B, OMV 2019-09-15 00:00:00 Completed [facility] Meningococcal B, OMV 2019-09-15 00:00:00 Completed [facility] Meningococcal B, OMV 2019-09-15 00:00:00 Completed [facility] Meningococcal B, OMV 2019-09-15 00:00:00 Completed [facility] Meningococcal B, OMV 2019-09-15 00:00:00 Completed [facility] Meningococcal B, OMV 2019-09-15 00:00:00 Completed [facility] Meningococcal B, OMV 2019-09-15 00:00:00 Completed [facility] Meningococcal B, OMV 2019-09-15 00:00:00 Completed [facility] Meningococcal B, OMV 2019-09-15 00:00:00 Completed [facility] Meningococcal B, OMV 2019-09-15 00:00:00 Completed [facility] Meningococcal B, OMV 2019-09-15 00:00:00 Completed [facility] Meningococcal B, OMV 2019-09-15 00:00:00 Completed [facility] Meningococcal Polysaccharide (groups A, C, Y and W-135) conjugate vaccine (MCV4P) 2019-07-14 00:00:00 Completed [facility] Meningococcal B, OMV 2019-07-14 00:00:00 Completed [facility] Meningococcal Polysaccharide (groups A, C, Y and W-135) conjugate vaccine (MCV4P) 2019-07-14 00:00:00 Completed [facility] Meningococcal B, OMV 2019-07-14 00:00:00 Completed [facility] Meningococcal Polysaccharide (groups A, C, Y and W-135) conjugate vaccine (MCV4P) 2019-07-14 00:00:00 Completed [facility] Meningococcal B, OMV 2019-07-14 00:00:00 Completed [facility] Meningococcal Polysaccharide (groups A, C, Y and W-135) conjugate vaccine (MCV4P) 2019-07-14 00:00:00 Completed [facility] Meningococcal B, OMV 2019-07-14 00:00:00 Completed [facility] Meningococcal Polysaccharide (groups A, C, Y and W-135) conjugate vaccine (MCV4P) 2019-07-14 00:00:00 Completed [facility] Meningococcal B, OMV 2019-07-14 00:00:00 Completed [facility] Meningococcal Polysaccharide (groups A, C, Y and W-135) conjugate vaccine (MCV4P) 2019-07-14 00:00:00 Completed [facility] Meningococcal B, OMV 2019-07-14 00:00:00 Completed [facility] Meningococcal Polysaccharide (groups A, C, Y and W-135) conjugate vaccine (MCV4P) 2019-07-14 00:00:00 Completed [facility] Meningococcal B, OMV 2019-07-14 00:00:00 Completed [facility] Meningococcal Polysaccharide (groups A, C, Y and W-135) conjugate vaccine (MCV4P) 2019-07-14 00:00:00 Completed [facility] Meningococcal B, OMV 2019-07-14 00:00:00 Completed [facility] Meningococcal Polysaccharide (groups A, C, Y and W-135) conjugate vaccine (MCV4P) 2019-07-14 00:00:00 Completed [facility] Meningococcal B, OMV 2019-07-14 00:00:00 Completed [facility] Meningococcal Polysaccharide (groups A, C, Y and W-135) conjugate vaccine (MCV4P) 2019-07-14 00:00:00 Completed [facility] Meningococcal B, OMV 2019-07-14 00:00:00 Completed [facility] Meningococcal Polysaccharide (groups A, C, Y and W-135) conjugate vaccine (MCV4P) 2019-07-14 00:00:00 Completed [facility] Meningococcal B, OMV 2019-07-14 00:00:00 Completed [facility] Meningococcal Polysaccharide (groups A, C, Y and W-135) conjugate vaccine (MCV4P) 2019-07-14 00:00:00 Completed [facility] Meningococcal B, OMV 2019-07-14 00:00:00 Completed [facility] Meningococcal Polysaccharide (groups A, C, Y and W-135) conjugate vaccine (MCV4P) 2019-07-14 00:00:00 Completed [facility] Meningococcal B, OMV 2019-07-14 00:00:00 Completed [facility] Meningococcal Polysaccharide (groups A, C, Y and W-135) conjugate vaccine (MCV4P) 2019-07-14 00:00:00 Completed [facility] Meningococcal B, OMV 2019-07-14 00:00:00 Completed [facility] Meningococcal Polysaccharide (groups A, C, Y and W-135) conjugate vaccine (MCV4P) 2019-07-14 00:00:00 Completed Meningococcal B, OMV 2019-07-14 00:00:00 Completed HPV 2014-03-21 00:00:00 Completed [facility] HPV 2014-03-21 00:00:00 Completed [facility] HPV 2014-03-21 00:00:00 Completed [facility] HPV 2014-03-21 00:00:00 Completed [facility] HPV 2014-03-21 00:00:00 Completed [facility] HPV 2014-03-21 00:00:00 Completed [facility] HPV 2014-03-21 00:00:00 Completed [facility] HPV 2014-03-21 00:00:00 Completed [facility] HPV 2014-03-21 00:00:00 Completed [facility] HPV 2014-03-21 00:00:00 Completed [facility] HPV 2014-03-21 00:00:00 Completed [facility] HPV 2014-03-21 00:00:00 Completed [facility] HPV 2014-03-21 00:00:00 Completed [facility] HPV 2014-03-21 00:00:00 Completed [facility] HPV 2014-03-21 00:00:00 Completed HPV 2013-07-30 00:00:00 Completed [facility] HPV 2013-07-30 00:00:00 Completed [facility] HPV 2013-07-30 00:00:00 Completed [facility] HPV 2013-07-30 00:00:00 Completed [facility] HPV 2013-07-30 00:00:00 Completed [facility] HPV 2013-07-30 00:00:00 Completed [facility] HPV 2013-07-30 00:00:00 Completed [facility] HPV 2013-07-30 00:00:00 Completed [facility] HPV 2013-07-30 00:00:00 Completed [facility] HPV 2013-07-30 00:00:00 Completed [facility] HPV 2013-07-30 00:00:00 Completed [facility] HPV 2013-07-30 00:00:00 Completed [facility] HPV 2013-07-30 00:00:00 Completed [facility] HPV 2013-07-30 00:00:00 Completed [facility] HPV 2013-07-30 00:00:00 Completed HPV 2013-05-18 00:00:00 Completed [facility] Meningococcal Vaccine 2013-05-18 00:00:00 Completed [facility] TDAP 2013-05-18 00:00:00 Completed [facility] HPV 2013-05-18 00:00:00 Completed [facility] Meningococcal Vaccine 2013-05-18 00:00:00 Completed [facility] TDAP 2013-05-18 00:00:00 Completed [facility] HPV 2013-05-18 00:00:00 Completed [facility] Meningococcal Vaccine 2013-05-18 00:00:00 Completed [facility] TDAP 2013-05-18 00:00:00 Completed [facility] HPV 2013-05-18 00:00:00 Completed [facility] Meningococcal Vaccine 2013-05-18 00:00:00 Completed [facility] TDAP 2013-05-18 00:00:00 Completed [facility] HPV 2013-05-18 00:00:00 Completed [facility] Meningococcal Vaccine 2013-05-18 00:00:00 Completed [facility] TDAP 2013-05-18 00:00:00 Completed [facility] HPV 2013-05-18 00:00:00 Completed [facility] Meningococcal Vaccine 2013-05-18 00:00:00 Completed [facility] TDAP 2013-05-18 00:00:00 Completed [facility] HPV 2013-05-18 00:00:00 Completed [facility] Meningococcal Vaccine 2013-05-18 00:00:00 Completed [facility] TDAP 2013-05-18 00:00:00 [facility] [facility] HPV 2013-05-18 00:00:00 Completed [facility] Meningococcal Vaccine 2013-05-18 00:00:00 Completed [facility] TDAP 2013-05-18 00:00:00 Completed [facility] HPV 2013-05-18 00:00:00 Completed [facility] Meningococcal Vaccine 2013-05-18 00:00:00 Completed [facility] TDAP 2013-05-18 00:00:00 Completed [facility] HPV 2013-05-18 00:00:00 Completed [facility] Meningococcal Vaccine 2013-05-18 00:00:00 Completed [facility] TDAP 2013-05-18 00:00:00 Completed [facility] HPV 2013-05-18 00:00:00 Completed [facility] Meningococcal Vaccine 2013-05-18 00:00:00 Completed [facility] TDAP 2013-05-18 00:00:00 Completed [facility] HPV 2013-05-18 00:00:00 Completed [facility] Meningococcal Vaccine 2013-05-18 00:00:00 Completed [facility] TDAP 2013-05-18 00:00:00 Completed [facility] HPV 2013-05-18 00:00:00 Completed [facility] Meningococcal Vaccine 2013-05-18 00:00:00 Completed [facility] TDAP 2013-05-18 00:00:00 Completed [facility] HPV 2013-05-18 00:00:00 Completed [facility] Meningococcal Vaccine 2013-05-18 00:00:00 Completed [facility] TDAP 2013-05-18 00:00:00 Completed [facility] HPV 2013-05-18 00:00:00 Completed Meningococcal Vaccine 2013-05-18 00:00:00 Completed TDAP 2013-05-18 00:00:00 Completed Influenza Virus Vaccine 2012-06-15 00:00:00 Completed [facility] Influenza Virus Vaccine 2012-06-15 00:00:00 Completed [facility] Influenza Virus Vaccine 2012-06-15 00:00:00 Completed [facility] Influenza Virus Vaccine 2012-06-15 00:00:00 Completed [facility] Influenza Virus Vaccine 2012-06-15 00:00:00 Completed [facility] Influenza Virus Vaccine 2012-06-15 00:00:00 Completed [facility] Influenza Virus Vaccine 2012-06-15 00:00:00 Completed [facility] Influenza Virus Vaccine 2012-06-15 00:00:00 Completed [facility] Influenza Virus Vaccine 2012-06-15 00:00:00 Completed [facility] Influenza Virus Vaccine 2012-06-15 00:00:00 Completed [facility] Influenza Virus Vaccine 2012-06-15 00:00:00 Completed [facility] Influenza Virus Vaccine 2012-06-15 00:00:00 Completed [facility] Influenza Virus Vaccine 2012-06-15 00:00:00 Completed [facility] Influenza Virus Vaccine 2012-06-15 00:00:00 Completed [facility] Influenza Virus Vaccine 2012-06-15 00:00:00 Completed Influenza Virus Vaccine 2012-04-01 00:00:00 Completed [facility] Influenza Virus Vaccine 2012-04-01 00:00:00 Completed [facility] Influenza Virus Vaccine 2012-04-01 00:00:00 Completed [facility] Influenza Virus Vaccine 2012-04-01 00:00:00 Completed [facility] Influenza Virus Vaccine 2012-04-01 00:00:00 Completed [facility] Influenza Virus Vaccine 2012-04-01 00:00:00 Completed [facility] Influenza Virus Vaccine 2012-04-01 00:00:00 Completed [facility] Influenza Virus Vaccine 2012-04-01 00:00:00 Completed [facility] Influenza Virus Vaccine 2012-04-01 00:00:00 Completed [facility] Influenza Virus Vaccine 2012-04-01 00:00:00 Completed [facility] Influenza Virus Vaccine 2012-04-01 00:00:00 Completed [facility] Influenza Virus Vaccine 2012-04-01 00:00:00 Completed [facility] Influenza Virus Vaccine 2012-04-01 00:00:00 Completed [facility] Influenza Virus Vaccine 2012-04-01 00:00:00 Completed [facility] Influenza Virus Vaccine 2012-04-01 00:00:00 Completed HPV 2011-05-21 00:00:00 Completed [facility] Influenza Virus Vaccine 2011-05-21 00:00:00 Completed [facility] HPV 2011-05-21 00:00:00 Completed [facility] Influenza Virus Vaccine 2011-05-21 00:00:00 Completed [facility] HPV 2011-05-21 00:00:00 Completed [facility] Influenza Virus Vaccine 2011-05-21 00:00:00 Completed [facility] HPV 2011-05-21 00:00:00 Completed [facility] Influenza Virus Vaccine 2011-05-21 00:00:00 Completed [facility] HPV 2011-05-21 00:00:00 Completed [facility] Influenza Virus Vaccine 2011-05-21 00:00:00 Completed [facility] HPV 2011-05-21 00:00:00 Completed [facility] Influenza Virus Vaccine 2011-05-21 00:00:00 Completed [facility] HPV 2011-05-21 00:00:00 Completed [facility] Influenza Virus Vaccine 2011-05-21 00:00:00 Completed [facility] HPV 2011-05-21 00:00:00 Completed [facility] Influenza Virus Vaccine 2011-05-21 00:00:00 Completed [facility] HPV 2011-05-21 00:00:00 Completed [facility] Influenza Virus Vaccine 2011-05-21 00:00:00 Completed [facility] HPV 2011-05-21 00:00:00 Completed [facility] Influenza Virus Vaccine 2011-05-21 00:00:00 Completed [facility] HPV 2011-05-21 00:00:00 Completed [facility] Influenza Virus Vaccine 2011-05-21 00:00:00 Completed [facility] HPV 2011-05-21 00:00:00 Completed [facility] Influenza Virus Vaccine 2011-05-21 00:00:00 Completed [facility] HPV 2011-05-21 00:00:00 Completed [facility] Influenza Virus Vaccine 2011-05-21 00:00:00 Completed [facility] HPV 2011-05-21 00:00:00 Completed [facility] Influenza Virus Vaccine 2011-05-21 00:00:00 Completed [facility] HPV 2011-05-21 00:00:00 Completed Influenza Virus Vaccine 2011-05-21 00:00:00 Completed HEPATITIS A 2007-01-05 00:00:00 Completed [facility] HEPATITIS A 2007-01-05 00:00:00 Completed [facility] HEPATITIS A 2007-01-05 00:00:00 Completed [facility] HEPATITIS A 2007-01-05 00:00:00 Completed [facility] HEPATITIS A 2007-01-05 00:00:00 Completed [facility] HEPATITIS A 2007-01-05 00:00:00 Completed [facility] HEPATITIS A 2007-01-05 00:00:00 Completed [facility] HEPATITIS A 2007-01-05 00:00:00 Completed [facility] HEPATITIS A 2007-01-05 00:00:00 Completed [facility] HEPATITIS A 2007-01-05 00:00:00 Completed [facility] HEPATITIS A 2007-01-05 00:00:00 Completed [facility] HEPATITIS A 2007-01-05 00:00:00 Completed [facility] HEPATITIS A 2007-01-05 00:00:00 Completed [facility] HEPATITIS A 2007-01-05 00:00:00 Completed [facility] HEPATITIS A 2007-01-05 00:00:00 Completed DTAP 2006-05-06 00:00:00 Completed [facility] Influenza Virus Vaccine 2006-05-06 00:00:00 Completed [facility] Polio (IPV/OPV) 2006-05-06 00:00:00 Completed [facility] Proquad (MMR/VARICELLA) 2006-05-06 00:00:00 Completed [facility] DTAP 2006-05-06 00:00:00 Completed [facility] Influenza Virus Vaccine 2006-05-06 00:00:00 Completed [facility] Polio (IPV/OPV) 2006-05-06 00:00:00 Completed [facility] Proquad (MMR/VARICELLA) 2006-05-06 00:00:00 Completed [facility] DTAP 2006-05-06 00:00:00 Completed [facility] Influenza Virus Vaccine 2006-05-06 00:00:00 Completed [facility] Polio (IPV/OPV) 2006-05-06 00:00:00 Completed [facility] Proquad (MMR/VARICELLA) 2006-05-06 00:00:00 Completed [facility] DTAP 2006-05-06 00:00:00 Completed [facility] Influenza Virus Vaccine 2006-05-06 00:00:00 Completed [facility] Polio (IPV/OPV) 2006-05-06 00:00:00 Completed [facility] Proquad (MMR/VARICELLA) 2006-05-06 00:00:00 Completed [facility] DTAP 2006-05-06 00:00:00 Completed [facility] Influenza Virus Vaccine 2006-05-06 00:00:00 Completed [facility] Polio (IPV/OPV) 2006-05-06 00:00:00 Completed [facility] Proquad (MMR/VARICELLA) 2006-05-06 00:00:00 Completed [facility] DTAP 2006-05-06 00:00:00 Completed [facility] Influenza Virus Vaccine 2006-05-06 00:00:00 Completed [facility] Polio (IPV/OPV) 2006-05-06 00:00:00 Completed [facility] Proquad (MMR/VARICELLA) 2006-05-06 00:00:00 Completed [facility] DTAP 2006-05-06 00:00:00 Completed [facility] Influenza Virus Vaccine 2006-05-06 00:00:00 Completed [facility] Polio (IPV/OPV) 2006-05-06 00:00:00 Completed [facility] Proquad (MMR/VARICELLA) 2006-05-06 00:00:00 Completed [facility] DTAP 2006-05-06 00:00:00 Completed [facility] Influenza Virus Vaccine 2006-05-06 00:00:00 Completed [facility] Polio (IPV/OPV) 2006-05-06 00:00:00 Completed [facility] Proquad (MMR/VARICELLA) 2006-05-06 00:00:00 Completed [facility] DTAP 2006-05-06 00:00:00 Completed [facility] Influenza Virus Vaccine 2006-05-06 00:00:00 Completed [facility] Polio (IPV/OPV) 2006-05-06 00:00:00 Completed [facility] Proquad (MMR/VARICELLA) 2006-05-06 00:00:00 Completed [facility] DTAP 2006-05-06 00:00:00 Completed [facility] Influenza Virus Vaccine 2006-05-06 00:00:00 Completed [facility] Polio (IPV/OPV) 2006-05-06 00:00:00 Completed [facility] Proquad (MMR/VARICELLA) 2006-05-06 00:00:00 Completed [facility] DTAP 2006-05-06 00:00:00 Completed [facility] Influenza Virus Vaccine 2006-05-06 00:00:00 Completed [facility] Polio (IPV/OPV) 2006-05-06 00:00:00 Completed [facility] Proquad (MMR/VARICELLA) 2006-05-06 00:00:00 Completed [facility] DTAP 2006-05-06 00:00:00 Completed [facility] Influenza Virus Vaccine 2006-05-06 00:00:00 Completed [facility] Polio (IPV/OPV) 2006-05-06 00:00:00 Completed [facility] Proquad (MMR/VARICELLA) 2006-05-06 00:00:00 Completed [facility] DTAP 2006-05-06 00:00:00 Completed [facility] Influenza Virus Vaccine 2006-05-06 00:00:00 Completed [facility] Polio (IPV/OPV) 2006-05-06 00:00:00 Completed [facility] Proquad (MMR/VARICELLA) 2006-05-06 00:00:00 Completed [facility] DTAP 2006-05-06 00:00:00 Completed [facility] Influenza Virus Vaccine 2006-05-06 00:00:00 Completed [facility] Polio (IPV/OPV) 2006-05-06 00:00:00 Completed [facility] Proquad (MMR/VARICELLA) 2006-05-06 00:00:00 Completed [facility] DTAP 2006-05-06 00:00:00 Completed Influenza Virus Vaccine 2006-05-06 00:00:00 Completed Polio (IPV/OPV) 2006-05-06 00:00:00 Completed Proquad (MMR/VARICELLA) 2006-05-06 00:00:00 Completed HEPATITIS A 2005-12-16 00:00:00 Completed [facility] HEPATITIS A 2005-12-16 00:00:00 Completed [facility] HEPATITIS A 2005-12-16 00:00:00 Completed [facility] HEPATITIS A 2005-12-16 00:00:00 Completed [facility] HEPATITIS A 2005-12-16 00:00:00 Completed [facility] HEPATITIS A 2005-12-16 00:00:00 Completed [facility] HEPATITIS A 2005-12-16 00:00:00 Completed [facility] HEPATITIS A 2005-12-16 00:00:00 Completed [facility] HEPATITIS A 2005-12-16 00:00:00 Completed [facility] HEPATITIS A 2005-12-16 00:00:00 Completed [facility] HEPATITIS A 2005-12-16 00:00:00 Completed [facility] HEPATITIS A 2005-12-16 00:00:00 Completed [facility] HEPATITIS A 2005-12-16 00:00:00 Completed [facility] HEPATITIS A 2005-12-16 00:00:00 Completed [facility] HEPATITIS A 2005-12-16 00:00:00 Completed DTAP 2004-07-05 00:00:00 Completed [facility] HIB 4 Dose Schedule 2004-07-05 00:00:00 Completed [facility] Pneumococcal 7 Conjugate, PCV7 (Prevnar7) 2004-07-05 00:00:00 Completed [facility] DTAP 2004-07-05 00:00:00 Completed [facility] HIB 4 Dose Schedule 2004-07-05 00:00:00 Completed [facility] Pneumococcal 7 Conjugate, PCV7 (Prevnar7) 2004-07-05 00:00:00 Completed [facility] DTAP 2004-07-05 00:00:00 Completed [facility] HIB 4 Dose Schedule 2004-07-05 00:00:00 Completed [facility] Pneumococcal 7 Conjugate, PCV7 (Prevnar7) 2004-07-05 00:00:00 Completed [facility] DTAP 2004-07-05 00:00:00 Completed [facility] HIB 4 Dose Schedule 2004-07-05 00:00:00 Completed [facility] Pneumococcal 7 Conjugate, PCV7 (Prevnar7) 2004-07-05 00:00:00 Completed [facility] DTAP 2004-07-05 00:00:00 Completed [facility] HIB 4 Dose Schedule 2004-07-05 00:00:00 Completed [facility] Pneumococcal 7 Conjugate, PCV7 (Prevnar7) 2004-07-05 00:00:00 Completed [facility] DTAP 2004-07-05 00:00:00 Completed [facility] HIB 4 Dose Schedule 2004-07-05 00:00:00 Completed [facility] Pneumococcal 7 Conjugate, PCV7 (Prevnar7) 2004-07-05 00:00:00 Completed [facility] DTAP 2004-07-05 00:00:00 Completed [facility] HIB 4 Dose Schedule 2004-07-05 00:00:00 Completed [facility] Pneumococcal 7 Conjugate, PCV7 (Prevnar7) 2004-07-05 00:00:00 Completed [facility] DTAP 2004-07-05 00:00:00 Completed [facility] HIB 4 Dose Schedule 2004-07-05 00:00:00 Completed [facility] Pneumococcal 7 Conjugate, PCV7 (Prevnar7) 2004-07-05 00:00:00 Completed [facility] DTAP 2004-07-05 00:00:00 Completed [facility] HIB 4 Dose Schedule 2004-07-05 00:00:00 Completed [facility] Pneumococcal 7 Conjugate, PCV7 (Prevnar7) 2004-07-05 00:00:00 Completed [facility] DTAP 2004-07-05 00:00:00 Completed [facility] HIB 4 Dose Schedule 2004-07-05 00:00:00 Completed [facility] Pneumococcal 7 Conjugate, PCV7 (Prevnar7) 2004-07-05 00:00:00 Completed [facility] DTAP 2004-07-05 00:00:00 Completed [facility] HIB 4 Dose Schedule 2004-07-05 00:00:00 Completed [facility] Pneumococcal 7 Conjugate, PCV7 (Prevnar7) 2004-07-05 00:00:00 Completed [facility] DTAP 2004-07-05 00:00:00 Completed [facility] HIB 4 Dose Schedule 2004-07-05 00:00:00 Completed [facility] Pneumococcal 7 Conjugate, PCV7 (Prevnar7) 2004-07-05 00:00:00 Completed [facility] DTAP 2004-07-05 00:00:00 Completed [facility] HIB 4 Dose Schedule 2004-07-05 00:00:00 Completed [facility] Pneumococcal 7 Conjugate, PCV7 (Prevnar7) 2004-07-05 00:00:00 Completed [facility] DTAP 2004-07-05 00:00:00 Completed [facility] HIB 4 Dose Schedule 2004-07-05 00:00:00 Completed [facility] Pneumococcal 7 Conjugate, PCV7 (Prevnar7) 2004-07-05 00:00:00 Completed [facility] DTAP 2004-07-05 00:00:00 Completed HIB 4 Dose Schedule 2004-07-05 00:00:00 Completed Pneumococcal 7 Conjugate, PCV7 (Prevnar7) 2004-07-05 00:00:00 Completed DTAP 2003-07-28 00:00:00 Completed [facility] HIB 4 Dose Schedule 2003-07-28 00:00:00 Completed [facility] Hep B, Adol or Pedi Dosage 2003-07-28 00:00:00 Completed [facility] MMR 2003-07-28 00:00:00 Completed [facility] Varicella (varivax)(chicken pox) 2003-07-28 00:00:00 Completed [facility] Pneumococcal 7 Conjugate, PCV7 (Prevnar7) 2003-07-28 00:00:00 Completed [facility] DTAP 2003-07-28 00:00:00 Completed [facility] HIB 4 Dose Schedule 2003-07-28 00:00:00 Completed [facility] Hep B, Adol or Pedi Dosage 2003-07-28 00:00:00 Completed [facility] MMR 2003-07-28 00:00:00 Completed [facility] Varicella (varivax)(chicken pox) 2003-07-28 00:00:00 Completed [facility] Pneumococcal 7 Conjugate, PCV7 (Prevnar7) 2003-07-28 00:00:00 Completed [facility] DTAP 2003-07-28 00:00:00 Completed [facility] HIB 4 Dose Schedule 2003-07-28 00:00:00 Completed [facility] Hep B, Adol or Pedi Dosage 2003-07-28 00:00:00 Completed [facility] MMR 2003-07-28 00:00:00 Completed [facility] Varicella (varivax)(chicken pox) 2003-07-28 00:00:00 Completed [facility] Pneumococcal 7 Conjugate, PCV7 (Prevnar7) 2003-07-28 00:00:00 Completed [facility] DTAP 2003-07-28 00:00:00 Completed [facility] HIB 4 Dose Schedule 2003-07-28 00:00:00 Completed [facility] Hep B, Adol or Pedi Dosage 2003-07-28 00:00:00 Completed [facility] MMR 2003-07-28 00:00:00 Completed [facility] Varicella (varivax)(chicken pox) 2003-07-28 00:00:00 Completed [facility] Pneumococcal 7 Conjugate, PCV7 (Prevnar7) 2003-07-28 00:00:00 Completed [facility] DTAP 2003-07-28 00:00:00 Completed [facility] HIB 4 Dose Schedule 2003-07-28 00:00:00 Completed [facility] Hep B, Adol or Pedi Dosage 2003-07-28 00:00:00 Completed [facility] MMR 2003-07-28 00:00:00 Completed [facility] Varicella (varivax)(chicken pox) 2003-07-28 00:00:00 Completed [facility] Pneumococcal 7 Conjugate, PCV7 (Prevnar7) 2003-07-28 00:00:00 Completed [facility] DTAP 2003-07-28 00:00:00 Completed [facility] HIB 4 Dose Schedule 2003-07-28 00:00:00 Completed [facility] Hep B, Adol or Pedi Dosage 2003-07-28 00:00:00 Completed [facility] MMR 2003-07-28 00:00:00 Completed [facility] Varicella (varivax)(chicken pox) 2003-07-28 00:00:00 Completed [facility] Pneumococcal 7 Conjugate, PCV7 (Prevnar7) 2003-07-28 00:00:00 Completed [facility] DTAP 2003-07-28 00:00:00 Completed [facility] HIB 4 Dose Schedule 2003-07-28 00:00:00 Completed [facility] Hep B, Adol or Pedi Dosage 2003-07-28 00:00:00 Completed [facility] MMR 2003-07-28 00:00:00 Completed [facility] Varicella (varivax)(chicken pox) 2003-07-28 00:00:00 Completed [facility] Pneumococcal 7 Conjugate, PCV7 (Prevnar7) 2003-07-28 00:00:00 Completed [facility] DTAP 2003-07-28 00:00:00 Completed [facility] [facility] HIB 4 Dose Schedule 2003-07-28 00:00:00 Completed [facility] Hep B, Adol or Pedi Dosage 2003-07-28 00:00:00 Completed [facility] MMR 2003-07-28 00:00:00 Completed [facility] Varicella (varivax)(chicken pox) 2003-07-28 00:00:00 Completed [facility] Pneumococcal 7 Conjugate, PCV7 (Prevnar7) 2003-07-28 00:00:00 Completed [facility] DTAP 2003-07-28 00:00:00 Completed [facility] HIB 4 Dose Schedule 2003-07-28 00:00:00 Completed [facility] Hep B, Adol or Pedi Dosage 2003-07-28 00:00:00 Completed [facility] MMR 2003-07-28 00:00:00 Completed [facility] Varicella (varivax)(chicken pox) 2003-07-28 00:00:00 Completed [facility] Pneumococcal 7 Conjugate, PCV7 (Prevnar7) 2003-07-28 00:00:00 Completed [facility] DTAP 2003-07-28 00:00:00 Completed [facility] HIB 4 Dose Schedule 2003-07-28 00:00:00 Completed [facility] Hep B, Adol or Pedi Dosage 2003-07-28 00:00:00 Completed [facility] MMR 2003-07-28 00:00:00 Completed [facility] Varicella (varivax)(chicken pox) 2003-07-28 00:00:00 Completed [facility] Pneumococcal 7 Conjugate, PCV7 (Prevnar7) 2003-07-28 00:00:00 Completed [facility] DTAP 2003-07-28 00:00:00 Completed [facility] HIB 4 Dose Schedule 2003-07-28 00:00:00 Completed [facility] Hep B, Adol or Pedi Dosage 2003-07-28 00:00:00 Completed [facility] MMR 2003-07-28 00:00:00 Completed [facility] Varicella (varivax)(chicken pox) 2003-07-28 00:00:00 Completed [facility] Pneumococcal 7 Conjugate, PCV7 (Prevnar7) 2003-07-28 00:00:00 Completed [facility] DTAP 2003-07-28 00:00:00 Completed [facility] HIB 4 Dose Schedule 2003-07-28 00:00:00 Completed [facility] Hep B, Adol or Pedi Dosage 2003-07-28 00:00:00 Completed [facility] MMR 2003-07-28 00:00:00 Completed [facility] Varicella (varivax)(chicken pox) 2003-07-28 00:00:00 Completed [facility] Pneumococcal 7 Conjugate, PCV7 (Prevnar7) 2003-07-28 00:00:00 Completed [facility] DTAP 2003-07-28 00:00:00 Completed [facility] HIB 4 Dose Schedule 2003-07-28 00:00:00 Completed [facility] Hep B, Adol or Pedi Dosage 2003-07-28 00:00:00 Completed [facility] MMR 2003-07-28 00:00:00 Completed [facility] Varicella (varivax)(chicken pox) 2003-07-28 00:00:00 Completed [facility] Pneumococcal 7 Conjugate, PCV7 (Prevnar7) 2003-07-28 00:00:00 Completed [facility] DTAP 2003-07-28 00:00:00 Completed [facility] HIB 4 Dose Schedule 2003-07-28 00:00:00 Completed [facility] Hep B, Adol or Pedi Dosage 2003-07-28 00:00:00 Completed [facility] MMR 2003-07-28 00:00:00 Completed [facility] Varicella (varivax)(chicken pox) 2003-07-28 00:00:00 Completed [facility] Pneumococcal 7 Conjugate, PCV7 (Prevnar7) 2003-07-28 00:00:00 Completed [facility] DTAP 2003-07-28 00:00:00 Completed HIB 4 Dose Schedule 2003-07-28 00:00:00 Completed Hep B, Adol or Pedi Dosage 2003-07-28 00:00:00 Completed MMR 2003-07-28 00:00:00 Completed Varicella (varivax)(chicken pox) 2003-07-28 00:00:00 Completed Pneumococcal 7 Conjugate, PCV7 (Prevnar7) 2003-07-28 00:00:00 Completed DTAP 2002 00:00:00 Completed [facility] Hep B, Adol or Pedi Dosage 2002 00:00:00 Completed [facility] Polio (IPV/OPV) 2002 00:00:00 Completed [facility] DTAP 2002 00:00:00 Completed [facility] Hep B, Adol or Pedi Dosage 2002 00:00:00 Completed [facility] Polio (IPV/OPV) 2002 00:00:00 Completed [facility] DTAP 2002 00:00:00 Completed [facility] Hep B, Adol or Pedi Dosage 2002 00:00:00 Completed [facility] Polio (IPV/OPV) 2002 00:00:00 Completed [facility] DTAP 2002 00:00:00 Completed [facility] Hep B, Adol or Pedi Dosage 2002 00:00:00 Completed [facility] Polio (IPV/OPV) 2002 00:00:00 Completed [facility] DTAP 2002 00:00:00 Completed [facility] Hep B, Adol or Pedi Dosage 2002 00:00:00 Completed [facility] Polio (IPV/OPV) 2002 00:00:00 Completed [facility] DTAP 2002 00:00:00 Completed [facility] Hep B, Adol or Pedi Dosage 2002 00:00:00 Completed [facility] Polio (IPV/OPV) 2002 00:00:00 Completed [facility] DTAP 2002 00:00:00 Completed [facility] Hep B, Adol or Pedi Dosage 2002 00:00:00 Completed [facility] Polio (IPV/OPV) 2002 00:00:00 Completed [facility] DTAP 2002 00:00:00 Completed [facility] Hep B, Adol or Pedi Dosage 2002 00:00:00 Completed [facility] Polio (IPV/OPV) 2002 00:00:00 Completed [facility] DTAP 2002 00:00:00 Completed [facility] Hep B, Adol or Pedi Dosage 2002 00:00:00 Completed [facility] Polio (IPV/OPV) 2002 00:00:00 Completed [facility] DTAP 2002 00:00:00 Completed [facility] Hep B, Adol or Pedi Dosage 2002 00:00:00 Completed [facility] Polio (IPV/OPV) 2002 00:00:00 Completed [facility] DTAP 2002 00:00:00 Completed [facility] Hep B, Adol or Pedi Dosage 2002 00:00:00 Completed [facility] Polio (IPV/OPV) 2002 00:00:00 Completed [facility] DTAP 2002 00:00:00 Completed [facility] Hep B, Adol or Pedi Dosage 2002 00:00:00 Completed [facility] Polio (IPV/OPV) 2002 00:00:00 Completed [facility] DTAP 2002 00:00:00 Completed [facility] Hep B, Adol or Pedi Dosage 2002 00:00:00 Completed [facility] Polio (IPV/OPV) 2002 00:00:00 Completed [facility] DTAP 2002 00:00:00 Completed [facility] Hep B, Adol or Pedi Dosage 2002 00:00:00 Completed [facility] Polio (IPV/OPV) 2002 00:00:00 Completed [facility] DTAP 2002 00:00:00 Completed Hep B, Adol or Pedi Dosage 2002 00:00:00 Completed Polio (IPV/OPV) 2002 00:00:00 Completed DTAP 2002 00:00:00 Completed [facility] Polio (IPV/OPV) 2002 00:00:00 Completed [facility] DTAP 2002 00:00:00 Completed [facility] Polio (IPV/OPV) 2002 00:00:00 Completed [facility] DTAP 2002 00:00:00 Completed [facility] Polio (IPV/OPV) 2002 00:00:00 Completed [facility] DTAP 2002 00:00:00 Completed [facility] Polio (IPV/OPV) 2002 00:00:00 Completed [facility] DTAP 2002 00:00:00 Completed [facility] Polio (IPV/OPV) 2002 00:00:00 Completed [facility] DTAP 2002 00:00:00 Completed [facility] Polio (IPV/OPV) 2002 00:00:00 Completed [facility] DTAP 2002 00:00:00 Completed [facility] Polio (IPV/OPV) 2002 00:00:00 Completed [facility] DTAP 2002 00:00:00 Completed [facility] Polio (IPV/OPV) 2002 00:00:00 Completed [facility] DTAP 2002 00:00:00 Completed [facility] Polio (IPV/OPV) 2002 00:00:00 Completed [facility] DTAP 2002 00:00:00 Completed [facility] Polio (IPV/OPV) 2002 00:00:00 Completed [facility] DTAP 2002 00:00:00 Completed [facility] Polio (IPV/OPV) 2002 00:00:00 Completed [facility] DTAP 2002 00:00:00 Completed [facility] Polio (IPV/OPV) 2002 00:00:00 Completed [facility] DTAP 2002 00:00:00 Completed [facility] Polio (IPV/OPV) 2002 00:00:00 Completed [facility] DTAP 2002 00:00:00 Completed [facility] Polio (IPV/OPV) 2002 00:00:00 Completed [facility] DTAP 2002 00:00:00 Completed [facility] Polio (IPV/OPV) 2002 00:00:00 Completed Hep B, Adol or Pedi Dosage 2002 00:00:00 Completed [facility] Hep B, Adol or Pedi Dosage 2002 00:00:00 Completed [facility] Hep B, Adol or Pedi Dosage 2002 00:00:00 Completed [facility] Hep B, Adol or Pedi Dosage 2002 00:00:00 Completed [facility] Hep B, Adol or Pedi Dosage 2002 00:00:00 Completed [facility] Hep B, Adol or Pedi Dosage 2002 00:00:00 Completed [facility] Hep B, Adol or Pedi Dosage 2002 00:00:00 Completed [facility] Hep B, Adol or Pedi Dosage 2002 00:00:00 Completed [facility] Hep B, Adol or Pedi Dosage 2002 00:00:00 Completed [facility] Hep B, Adol or Pedi Dosage 2002 00:00:00 Completed [facility] Hep B, Adol or Pedi Dosage 2002 00:00:00 Completed [facility] Hep B, Adol or Pedi Dosage 2002 00:00:00 Completed [facility] Hep B, Adol or Pedi Dosage 2002 00:00:00 Completed [facility] Hep B, Adol or Pedi Dosage 2002 00:00:00 Completed [facility] Hep B, Adol or Pedi Dosage 2002 00:00:00 Completed DTAP Unknown Completed [facility] HIB 4 Dose Schedule Unknown Completed [facility] HEPATITIS A Unknown Completed [facility] Hep B, Adol or Pedi Dosage Unknown Completed [facility] HPV Unknown Completed [facility] Influenza Virus Vaccine Unknown Completed [facility] Meningococcal Vaccine Unknown Completed [facility] MMR Unknown Completed [facility] Polio (IPV/OPV) Unknown Completed [facility] Proquad (MMR/VARICELLA) Unknown Completed [facility] TDAP Unknown Completed [facility] Varicella (varivax)(chicken pox) Unknown Completed [facility] Pneumococcal 7 Conjugate, PCV7 (Prevnar7) Unknown Completed [facility] Meningococcal Polysaccharide (groups A, C, Y and W-135) conjugate vaccine (MCV4P) Unknown Completed [facility] Meningococcal B, OMV Unknown Completed [facility] Influenza Virus Vaccine Quad .5 mL IM 6+ MO (FLUZONE/FLULAVAL/FL UARIX) Unknown Completed [facility] Pneumococcal 20 Conjugate, PCV20 (Prevnar 20) Unknown Completed [facility] DTAP Unknown Completed [facility] HIB 4 Dose Schedule Unknown Completed [facility] HEPATITIS A Unknown Completed [facility] Hep B, Adol or Pedi Dosage Unknown Completed [facility] HPV Unknown Completed [facility] Influenza Virus Vaccine Unknown Completed [facility] Meningococcal Vaccine Unknown Completed [facility] MMR Unknown Completed [facility] Polio (IPV/OPV) Unknown Completed [facility] Proquad (MMR/VARICELLA) Unknown Completed [facility] TDAP Unknown Completed [facility] Varicella (varivax)(chicken pox) Unknown Completed [facility] Pneumococcal 7 Conjugate, PCV7 (Prevnar7) Unknown Completed [facility] Meningococcal Polysaccharide (groups A, C, Y and W-135) conjugate vaccine (MCV4P) Unknown Completed [facility] Meningococcal B, OMV Unknown Completed [facility] Influenza Virus Vaccine Quad .5 mL IM 6+ MO (FLUZONE/FLULAVAL/FL UARIX) Unknown Completed [facility] Pneumococcal 20 Conjugate, PCV20 (Prevnar 20) Unknown Completed [facility] DTAP Unknown Completed [facility] HIB 4 Dose Schedule Unknown Completed [facility] HEPATITIS A Unknown Completed [facility] Hep B, Adol or Pedi Dosage Unknown Completed [facility] HPV Unknown Completed [facility] Influenza Virus Vaccine Unknown Completed [facility] Meningococcal Vaccine Unknown Completed [facility] MMR Unknown Completed [facility] Polio (IPV/OPV) Unknown Completed [facility] Proquad (MMR/VARICELLA) Unknown Completed [facility] TDAP Unknown Completed [facility] Varicella (varivax)(chicken pox) Unknown Completed [facility] Pneumococcal 7 Conjugate, PCV7 (Prevnar7) Unknown Completed [facility] Meningococcal Polysaccharide (groups A, C, Y and W-135) conjugate vaccine (MCV4P) Unknown Completed [facility] Meningococcal B, OMV Unknown Completed [facility] Influenza Virus Vaccine Quad .5 mL IM 6+ MO (FLUZONE/FLULAVAL/FL UARIX) Unknown Completed [facility] Pneumococcal 20 Conjugate, PCV20 (Prevnar 20) Unknown Completed [facility] Vital Signs Vital Name Observation Time Observation Value Comments S ource Heart rate 2024-10-25 19:30:00 94 /min Bridgette shore Seybold - External Body temperature 2024-10-25 19:30:00 36.83 Negrita Nya Pichardoybold - External Respiratory rate 2024-10-25 19:30:00 18 /min Nya Lemonsold - External Body height 2024-10-25 19:30:00 166.8 cm Sophie babb Seybold - External Body weight 2024-10-25 19:30:00 75.297 kg Sophie babb Seybold - External BMI 2024-10-25 19:30:00 27.06 kg/m2 Sophie babb Seybold - External Oxygen saturation in Arterial blood by Pulse oximetry 2024-10-25 19:30:00 97 /min Nya Lemonso ld - External Systolic blood pressure 2024-10-25 19:30:00 110 mm[Hg] Nya Lemonso ld - External Diastolic blood pressure 2024-10-25 19:30:00 60 mm[Hg] Nya Pichardoybo ld - External Systolic blood pressure 2024-05-12 16:12:00 125 mm[Hg] [facility] Diastolic blood pressure 2024-05-12 16:12:00 79 mm[Hg] [facility] Heart rate 2024-05-12 16:12:00 86 /min [facility] Body temperature 2024-05-12 16:12:00 36.94 Negrita [facility] Respiratory rate 2024-05-12 16:12:00 18 /min [facility] Body height 2024-05-12 16:12:00 168.9 cm [facility] Body weight 2024-05-12 16:12:00 63.504 kg [facility] BMI 2024-05-12 16:12:00 22.26 kg/m2 [facility] Oxygen saturation in Arterial blood by Pulse oximetry 2024-05-12 16:12:00 98 /min [facility] Systolic blood pressure 2024-04-05 14:24:00 130 mm[Hg] [facility] Diastolic blood pressure 2024-04-05 14:24:00 66 mm[Hg] [facility] Heart rate 2024-04-05 14:24:00 95 /min [facility] Body temperature 2024-04-05 14:24:00 36.94 Negrita [facility] Respiratory rate 2024-04-05 14:24:00 20 /min [facility] Body height 2024-04-05 14:24:00 165.1 cm [facility] Body weight 2024-04-05 14:24:00 61.236 kg [facility] BMI 2024-04-05 14:24:00 22.47 kg/m2 [facility] Oxygen saturation in Arterial blood by Pulse oximetry 2024-04-05 14:24:00 100 /min [facility] Systolic blood pressure 2023-09-16 04:54:00 120 mm[Hg] [facility] Diastolic blood pressure 2023-09-16 04:54:00 65 mm[Hg] [facility] Heart rate 2023-09-16 04:54:00 83 /min [facility] Body temperature 2023-09-16 04:54:00 36.94 Negrita [facility] Respiratory rate 2023-09-16 04:54:00 15 /min [facility] Oxygen saturation in Arterial blood by Pulse oximetry 2023-09-16 04:54:00 99 /min [facility] Body height 2023-09-16 01:38:00 165.1 cm [facility] Body weight 2023-09-16 01:38:00 68.04 kg [facility] BMI 2023-09-16 01:38:00 24.96 kg/m2 [facility] Systolic blood pressure 2023-07-10 09:53:00 117 mm[Hg] [facility] Diastolic blood pressure 2023-07-10 09:53:00 68 mm[Hg] [facility] Heart rate 2023-07-10 09:53:00 104 /min [facility] Body temperature 2023-07-10 09:53:00 38.28 Negrita [facility] Respiratory rate 2023-07-10 09:53:00 20 /min [facility] Body height 2023-07-10 09:53:00 [facility] 2023-07-10 09:53:00 64.501 [facility] BMI 2023-07-10 09:53:00 23.66 kg/m2 [facility] Oxygen saturation in Arterial blood by Pulse oximetry 2023-07-10 09:53:00 96 /min [facility] Systolic blood pressure 2023-07-07 18:57:00 121 mm[Hg] [facility] Diastolic blood pressure 2023-07-07 18:57:00 61 mm[Hg] [facility] Heart rate 2023-07-07 18:57:00 114 /min [facility] Body temperature 2023-07-07 18:57:00 36.5 Negrita [facility] Respiratory rate 2023-07-07 18:57:00 20 /min [facility] Body height 2023-07-07 18:57:00 165.1 cm [facility] Body weight 2023-07-07 18:57:00 637.304 kg [facility] BMI 2023-07-07 18:57:00 233.80 kg/m2 [facility] Oxygen saturation in Arterial blood by Pulse oximetry 2023-07-07 18:57:00 97 /min [facility] Systolic blood pressure 2023-01-13 19:21:00 123 mm[Hg] [facility] Diastolic blood pressure 2023-01-13 19:21:00 73 mm[Hg] [facility] Heart rate 2023-01-13 19:21:00 75 /min [facility] Body height 2023-01-13 19:21:00 166.4 cm [facility] Body weight 2023-01-13 19:21:00 63.685 kg [facility] BMI 2023-01-13 19:21:00 23.01 kg/m2 [facility] Oxygen saturation in Arterial blood by Pulse oximetry 2023-01-13 19:21:00 97 /min [facility] Systolic blood pressure 2022-12-11 19:50:00 118 mm[Hg] [facility] Diastolic blood pressure 2022-12-11 19:50:00 60 mm[Hg] [facility] Heart rate 2022-12-11 19:50:00 60 /min [facility] Respiratory rate 2022-12-11 19:50:00 18 /min [facility] Body height 2022-12-11 19:50:00 165.1 cm [facility] Body weight 2022-12-11 19:50:00 63.504 kg [facility] BMI 2022-12-11 19:50:00 23.30 kg/m2 [facility] Oxygen saturation in Arterial blood by Pulse oximetry 2022-12-11 19:50:00 97 /min [facility] Systolic blood pressure 2022-07-30 21:07:00 125 mm[Hg] [facility] Diastolic blood pressure 2022-07-30 21:07:00 75 mm[Hg] [facility] Heart rate 2022-07-30 21:07:00 66 /min [facility] Body temperature 2022-07-30 21:07:00 36.72 Negrita [facility] Body height 2022-07-30 21:07:00 160 cm [facility] Body weight 2022-07-30 21:07:00 64.864 kg [facility] BMI 2022-07-30 21:07:00 25.33 kg/m2 [facility] Oxygen saturation in Arterial blood by Pulse oximetry 2022-07-30 21:07:00 97 /min [facility] Systolic blood pressure 2022-03-26 17:05:00 133 mm[Hg] [facility] Diastolic blood pressure 2022-03-26 17:05:00 75 mm[Hg] [facility] Heart rate 2022-03-26 17:05:00 77 /min [facility] Body height 2022-03-26 17:05:00 160 cm [facility] Body weight 2022-03-26 17:05:00 63.277 kg [facility] BMI 2022-03-26 17:05:00 24.71 kg/m2 [facility] Oxygen saturation in Arterial blood by Pulse oximetry 2022-03-26 17:05:00 96 /min [facility] Systolic blood pressure 2022-01-29 15:55:00 111 mm[Hg] [facility] Diastolic blood pressure 2022-01-29 15:55:00 67 mm[Hg] [facility] Heart rate 2022-01-29 15:55:00 77 /min [facility] Body height 2022-01-29 15:55:00 165.1 cm [facility] Body weight 2022-01-29 15:55:00 63.141 kg [facility] BMI 2022-01-29 15:55:00 23.16 kg/m2 [facility] Oxygen saturation in Arterial blood by Pulse oximetry 2022-01-29 15:55:00 98 /min [facility] Systolic blood pressure 2021-08-14 16:20:00 130 mm[Hg] [facility] Diastolic blood pressure 2021-08-14 16:20:00 66 mm[Hg] [facility] Heart rate 2021-08-14 16:20:00 65 /min [facility] Body height 2021-08-14 16:20:00 165.1 cm [facility] Body weight 2021-08-14 16:20:00 63.56 kg [facility] BMI 2021-08-14 16:20:00 23.32 kg/m2 [facility] Body mass index (BMI) [Percentile] Per age and sex 2021-08-14 16:20:00 58.42 % [facility] Oxygen saturation in Arterial blood by Pulse oximetry 2021-08-14 16:20:00 97 /min [facility] Procedures Procedure Date / Time Performed Performing Clinician Source FLU VACC (0210-1162), 6 MO-64 YRS, .5ML, IM, TIV (FLUCELVAX) 2024-05-12 16:30:45 Chucky Acosta [facility] CT ABDOMEN PELVIS WO CONTRAST 2024-04-05 16:10:02 Ana Mars [facility] URINALYSIS 2024-04-05 14:40:00 Ana Mars [facility] CT SOFT TISSUE NECK W CONTRAST 2023-09-16 03:01:45 Angel Whitehead [facility] BASIC METABOLIC PANEL (NA, K, CL, CO2, GLUCOSE, BUN, CREATININE, CA) 2023-09-16 02:33:00 [place] [facility] CBC WITH DIFF 2023-09-16 02:33:00 Angel Whitehead [facility] RAPID STREP SCREEN FOR GROUP A 2023-09-16 01:42:00 Angel Whitehead [facility] CONSENT/REFUSAL FOR DIAGNOSIS AND TREATMENT 2023-07-10 09:47:19 Doctor Unassigned, [place] [facility] ASSIGNMENT OF BENEFITS 2023-07-07 20:20:13 Docto r Unassigned, [place] [facility] RAPID STREP SCREEN FOR GROUP A 2023-07-07 19:06:00 Alena Dacosta [facility] RAPID INFLUENZA A/B 2023-07-07 19:06:00 Alena Dacosta [facility] COVID-19 (ID NOW RAPID TESTING) 2023-07-07 19:06:00 Alena Dacosta [facility] NOTICE OF PRIVACY PRACTICES 2023-07-07 18:30:30 Doctor Unassigned, [place] [facility] CONSENT/REFUSAL FOR DIAGNOSIS AND TREATMENT 2023-07-07 18:29:53 Doctor Unassigned, [place] [facility] PNEUMOCOCCAL 20 CONJUGATE (PREVNAR 20) VACCINE 2022-12-11 20:21:54 Gail Jamison [facility] PATIENT FINANCIAL POLICY 2022-08-29 16:42:46 Doctor Unassigned, [place] [facility] ASSIGNMENT OF BENEFITS 2022-01-29 15:51:23 Docto r Unassigned, [place] [facility] MEDICAL RELEASE/CLEARANCE FORMS 2021-08-24 05:01:00 Doctor Unassigned, [place] [facility] Encounters Start Date/Time End Date/Time Encounter Type Admission Type Attending [facility] Facility Care Department Encounter ID Source 2024-11-02 09:30:00 2024-11-02 09:30:00 Outpatient JULIAN MONTELONGOAUDREY MAX [id number] Nya Pichardobaron 2024-10-25 15:10:00 2024-10-25 15:10:00 Outpatient [id number] NYA NYA [id number] [facility] 2024-10-25 14:00:00 2024-10-25 14:00:00 Outpatient JULIAN MONTELONGO NYA MAX [id number] Nya [facility] 2024-07-12 11:30:00 2024-07-12 11:30:00 Outpatient CHUCKY WOOTEN [facility] [id number] [facility] 2024-05-24 00:00:00 2024-05-24 13:59:38 Letter (Out) [facility] (JILLIAN) 1.2.840.114 350.1.13.10 4.2.7.2.686 [id number] [facility] 2024-05-14 00:00:00 2024-05-14 14:32:11 Telephone Chucky Acosta [facility] 1.2.840.114 350.1.13.10 4.2.7.2.686 [id number] [facility] 2024-05-14 00:00:00 2024-05-14 11:57:36 Patient Secure Msg Doctor Unassigned, [place] Doctor Unassigned, [place] [facility] 1.2.840.114 350.1.13.10 4.2.7.2.686 [id number] [facility] 2024-05-14 00:00:00 2024-05-14 11:57:19 Patient Secure Msg Doctor Unassigned, [place] Doctor Unassigned, [place] [facility] 1..840.114 350.1.13.10 4.2.7.2.686 [id number] [facility] 2024-05-14 00:00:00 2024-05-14 11:46:51 Telephone Chucky Acosta COUNTS INCLUDE 234 BEDS AT THE [facility] AN[facility] 1..840.114 350.1.13.10 4.2.7.2.686 [id number] [facility] 2024-05-12 11:15:00 2024-05-12 11:30:00 Cultural Anthropology Professor Visit Lab, Chucky Felipe, Ang [facility] 1..840.114 350.1.13.10 4.2.7.2.686 [id number] [facility] 2024-05-12 10:00:00 2024-05-12 10:42:48 Outpatient R JOCELYNCHUCKY Shaw [facility] [id number] [facility] 2024-05-12 10:00:00 2024-05-12 10:42:48 Office Visit [facility] 1..840.114 350.1.13.10 4.2.7.2.686 [id number] [facility] 2024-05-11 10:30:00 2024-05-11 10:30:00 Outpatient R MERVAT FONTENOT [facility] [id number] [facility] 2024-04-05 08:25:00 2024-04-05 11:06:00 Emergency X ANA MARS ERICCA [facility] [id number] [facility] 2024-04-05 08:25:00 2024-04-05 11:06:00 Emergency Ana Mars [facility] 1.2.840.114 350.1.13.10 4.2.7.2.686 [id number] [facility] 2023-09-15 20:43:00 2023-09-16 00:08:00 Emergency X ANGEL WHITEHEAD [facility] [id number] [facility] 2023-09-15 20:43:00 2023-09-16 00:08:00 Emergency Angel Whitehead [facility] 1.2840.114 350.1.13.10 4.2.7.2.686 [id number] [facility] 2023-07-10 04:56:00 2023-07-10 06:05:00 Emergency X PAMELLA BELLAMY [facility] [id number] [facility] 2023-07-10 04:56:00 2023-07-10 06:05:00 Emergency Pamella Bellamy C [facility] 1.2.840.114 350.1.13.10 4.2.7.2.686 [id number] [facility] 2023-07-07 14:00:00 2023-07-07 15:29:00 Emergency X ALENA DACOSTA [facility] [id number] [facility] 2023-07-07 14:00:00 2023-07-07 15:29:00 Emergency Alena Dacosta G [facility] 1.2.840.114 350.1.13.10 4.2.7.2.686 [id number] [facility] 2023-06-13 10:30:00 2023-06-13 10:30:00 Outpatient YARIEL RUDD [facility] [id number] [facility] 2023-04-14 14:30:00 2023-04-14 14:30:00 Outpatient CARRIE OLIVEIRA [facility] [id number] [facility] 2023-01-14 08:45:00 2023-01-14 09:00:00 Cultural Anthropology Professor Visit Lab, Dawit CuellarSuCarrie COUNTS INCLUDE 234 BEDS AT THE [facility] 1.840.114 350.1.13.10 4.2.7.2.686 [id number] [facility] 2023-01-14 08:45:00 2023-01-14 08:50:12 Outpatient R CARRIE CUELLAR [facility] [id number] [facility] 2023-01-13 14:30:00 2023-01-13 14:55:38 Outpatient R SU CUELLARTHIA [facility] [id number] [facility] 2023-01-13 14:30:00 2023-01-13 14:55:38 Office Visit AparnaSu kiserCounts [facility] 1.840.114 350.1.13.10 4.2.7.2.686 [id number] [facility] 2022-12-25 15:30:00 2022-12-25 15:30:00 Outpatient R CHUCKY ACOSTA [facility] [id number] [facility] 2022-12-11 14:40:00 2022-12-11 15:29:54 Outpatient R GAIL JAMISON [facility] [id number] [facility] 2022-12-11 14:40:00 2022-12-11 15:29:54 Office Visit Gail Jamison [facility] ..840.114 350.1.13.10 4.2.7.2.686 [id number] [facility] 2022-08-29 12:15:00 2022-08-29 12:30:00 Cultural Anthropology Professor Visit Lab, Dawit [facility] 1.840.114 350.1.13.10 4.2.7.2.686 [id number] [facility] 2022-08-29 12:15:00 2022-08-29 12:15:00 Outpatient R PATHOLOGY [facility] [id number] [facility] 2022-08-29 00:00:00 2022-08-29 00:00:00 Orders Only Doctor Unassigned, [place] [facility] 1.840.114 350.1.13.10 4.2.7.2.686 [id number] [facility] 2022-08-02 00:00:00 2022-08-02 00:00:00 Refill Chucky Acosta [facility] 1..840.114 350.1.13.10 4.2.7.2.686 [id number] [facility] 2022-07-30 16:30:00 2022-07-30 16:45:00 Cultural Anthropology Professor Visit Lab, Dawit [facility] 1..840.114 350.1.13.10 4.2.7.2.686 [id number] [facility] 2022-07-30 16:00:00 2022-07-30 16:32:16 Outpatient R CHUCKY ACOSTA [facility] [id number] [facility] 2022-07-30 16:00:00 2022-07-30 16:32:16 Office Visit Karla Chucky [facility] 1.840.114 350.1.13.10 4.2.7.2.686 [id number] [facility] 2022-07-15 08:30:00 2022-07-15 08:30:00 Outpatient R CHUCKY ACOSTA [facility] [id number] [facility] 2022-05-24 11:00:00 2022-05-24 11:00:00 Outpatient R CHUCKY ACOSTA [facility] [id number] [facility] 2022-03-26 11:00:00 2022-03-26 11:20:04 Outpatient R CHUCKY ACOSTA [facility] [id number] [facility] 2022-03-26 11:00:00 2022-03-26 11:20:04 Office Visit Karla Chucky [facility] 1.2.840.114 350.1.13.10 4.2.7.2.686 [id number] [facility] 2022-01-29 11:00:00 2022-01-29 11:21:02 Outpatient R CHUCKY ACOSTA [facility] [id number] [facility] 2022-01-29 11:00:00 2022-01-29 11:21:02 Office Visit JocelynChucky shaw [facility] 1.2.840.114 350.1.13.10 4.2.7.2.686 [id number] [facility] 2022-01-29 00:00:00 2022-01-29 00:00:00 Orders Only Doctor Unassigned, [place] [facility] 1..840.114 350.1.13.10 4.2.7.2.686 [id number] [facility] 2021-10-10 10:30:00 2021-10-10 10:30:00 Outpatient R CHUCKY ACOSTA [facility] [id number] [facility] 2021-10-02 08:30:00 2021-10-02 08:30:00 Outpatient CHUCKY WOOTEN [facility] [id number] [facility] 2021-10-02 08:30:00 2021-10-02 08:30:00 Outpatient CHUCKY WOOTEN [facility] [id number] [facility] 2021-10-01 09:30:00 2021-10-01 09:30:00 Outpatient CHUCKY WOOTEN [facility] [id number] [facility] 2021-08-24 00:00:00 2021-08-24 00:00:00 Orders Only Doctor Unassigned, [place] [facility] 1..840.114 350.1.13.10 4.2.7.2.686 [id number] [facility] 2021-08-23 00:00:00 2021-08-23 00:00:00 Telephone Gideon Biggs [facility] 1..840.114 350.1.13.10 4.2.7.2.686 [id number] [facility] 2021-08-15 16:30:00 2021-08-15 16:30:00 Outpatient R GIDEON BIGGS [facility] [id number] [facility] 2021-08-15 11:00:35 2021-08-15 11:44:00 Outpatient R GIDEON BIGGS [facility] [id number] [facility] 2021-08-14 11:30:00 2021-08-14 13:29:12 Office Visit Gideon Biggs [facility] 1..840.114 350.1.13.10 4.2.7.2.686 [id number] [facility] 2021-08-14 11:30:00 2021-08-14 11:30:00 Outpatient R GIDEON BIGGS [facility] [id number] [facility] 2021-08-14 09:45:00 2021-08-14 10:00:00 Cultural Anthropology Professor Visit Lab, Dawit - Chucky Vargas [facility] 1..840.114 350.1.13.10 4.2.7.2.686 [id number] [facility] 2021-08-14 08:30:00 2021-08-14 09:33:33 Office Visit Jocelyncolin Chucky COUNTS INCLUDE 234 BEDS AT THE [facility] 1.2.840.114 350.1.13.10 4.2.7.2.686 [id number] [facility] 2021-08-14 08:30:00 2021-08-14 09:33:33 Outpatient R JOCELYNCHUCKY Shaw [facility] [id number] [facility] 2021-08-14 08:30:00 2021-08-14 09:33:33 Outpatient R JOCELYNCHUCKY Shaw [facility] [id number] [facility] 2020-11-29 15:40:00 2020-11-29 15:40:00 Outpatient REGINA RICHARDS [facility] [id number] [facility] 2020-10-30 15:58:00 2020-10-30 16:40:07 Office Visit Regina Restrepo [facility] 1..840.114 350.1.13.10 4.2.7.2.686 [id number] [facility] 2020-10-30 16:00:00 2020-10-30 16:00:00 Outpatient REGINA RICHARDS [facility] [id number] [facility] 2020-10-26 09:30:00 2020-10-26 09:30:00 Outpatient REGINA RICHARDS [facility] [id number] [facility] 2020-10-19 00:00:00 2020-10-19 00:00:00 Telephone Regina Restrepo [facility] 1.2.840.114 350.1.13.10 4.2.7.2.686 [id number] [facility] 2020-08-28 15:48:02 2020-08-28 16:22:12 Office Visit Regina Restrepo [facility] 1.2.840.114 350.1.13.10 4.2.7.2.686 [id number] [facility] 2020-08-28 15:40:00 2020-08-28 15:40:00 Outpatient R DIMITRI REGINA [facility] [id number] [facility] 2020-08-01 10:30:00 2020-08-01 10:30:00 Outpatient R DIMITRI REGINA [facility] [id number] [facility] 2020-07-25 08:32:50 2020-07-25 09:10:42 Office Visit Regina Restrepo [facility] 1.2.840.114 350.1.13.10 4.2.7.2.686 [id number] [facility] 2020-07-25 08:32:50 2020-07-25 09:10:42 Office Visit Regina Restrepo [facility] 1.2.840.114 350.1.13.10 4.2.7.2.686 [id number] 2020-07-25 08:30:00 2020-07-25 08:30:00 Outpatient R DIMITRI REGINA [facility] [id number] [facility] 2020-07-18 13:05:47 2020-07-18 13:46:18 Office Visit Edelmira Lloyd [facility] 1.2.840.114 350.1.13.10 4.2.7.2.686 [id number] [facility] 2020-07-18 13:20:00 2020-07-18 13:20:00 Outpatient R EDELMIRA LLOYD [facility] [id number] [facility] 2020-07-18 00:00:00 2020-07-18 00:00:00 Telephone Regina Restrepo [facility] 1.2.840.114 350.1.13.10 4.2.7.2.686 [id number] [facility] 2020-06-26 00:00:00 2020-06-26 00:00:00 Telephone Regina Restrepo [facility] 1.2.840.114 350.1.13.10 4.2.7.2.686 [id number] [facility] 2020-06-01 00:00:00 2020-06-01 00:00:00 Letter (Out) Regina Restrepo [facility] 1.2.840.114 350.1.13.10 4.2.7.2.686 [id number] [facility] 2020-05-03 10:03:03 2020-05-03 11:27:46 Office Visit Regina Restrepo [facility] 1.2.840.114 350.1.13.10 4.2.7.2.686 [id number] [facility] 2020-05-03 10:30:00 2020-05-03 10:30:00 Outpatient R REGINA RESTREPO [facility] [id number] [facility] 2020-04-26 16:00:00 2020-04-26 16:00:00 Outpatient R REGINA RESTREPO [facility] [id number] [facility] 2020-01-16 00:00:00 2020-01-16 00:00:00 Refill Regina Restrepo [facility] 1.2.840.114 350.1.13.10 4.2.7.2.686 [id number] [facility] 2019-11-17 00:00:00 2019-11-17 00:00:00 Telephone Padmini [facility] Medical Office Building 1.2840.114 350.1.13.10 4.2.7.2.686 [id number] [facility] 2019-10-26 12:30:00 2019-10-26 12:30:00 Outpatient REGINA RICHARDS [facility] [id number] [facility] 2019-10-26 08:27:16 2019-10-26 08:42:16 Telemedici ne Visit Regina Restrepo [facility] Building 1.2840.114 350.1.13.10 4.2.7.2.686 [id number] [facility] 2019-10-19 15:20:00 2019-10-19 15:20:00 Outpatient REGINA RICHARDS [facility] [id number] [facility] 2019-10-13 00:00:00 2019-10-13 00:00:00 Refill Regina Restrepo [facility] Building 1.840.114 350.1.13.10 4.2.7.2.686 [id number] [facility] 2019-10-04 12:02:42 2019-10-04 12:17:42 Cultural Anthropology Professor Visit Draw, Clc-Bls Lab Padmini [facility] Medical Office Building 1.2840.114 350.1.13.10 4.2.7.2.686 [id number] [facility] 2019-10-04 10:21:26 2019-10-04 12:09:55 Office Visit Padmini [facility] Building 1.284.114 350.1.13.10 4.2.7.2.686 [id number] [facility] 2019-10-04 11:09:10 2019-10-04 11:39:10 Office Visit George Arango [facility] Building 1..840.114 350.1.13.10 4.2.7.2.686 [id number] [facility] 2019-10-04 10:30:00 2019-10-04 10:30:00 Outpatient R EVIN WASHINGTON [facility] [id number] [facility] 2019-09-21 14:00:00 2019-09-21 14:00:00 Outpatient R [facility] [id number] [facility] 2019-09-17 00:00:00 2019-09-17 00:00:00 Patient Outreach Filomena Oconnor [facility] Office Building One 1..840.114 350.1.13.10 4.2.7.2.686 [id number] [facility] 2019-09-15 15:00:00 2019-09-15 15:00:00 Outpatient REGINA RICHARDS [facility] [id number] [facility] 2019-09-14 00:00:00 2019-09-14 00:00:00 Telephone Regina Restrepo [facility] Building 1..840.114 350.1.13.10 4.2.7.2.686 [id number] [facility] 2019-09-07 10:00:00 2019-09-07 10:00:00 Outpatient LIZZ PATINO [facility] [id number] [facility] 2019-09-07 08:04:34 2019-09-07 09:28:10 Telemedici ne Visit Ang-Ped_Tem Lizz Pérez [facility] HEAT TREAT TECHNICIAN [facility] 1..840.114 350.1.13.10 4.2.7.2.686 [id number] [facility] 2019-09-07 00:00:00 2019-09-07 00:00:00 Telephone Margi Moore [facility] HEAT TREAT TECHNICIAN [facility] MATERNAL & CHILD [facility] 1.840.114 350.1.13.10 4.2.7.2.686 [id number] [facility] 2019-09-01 07:53:15 2019-09-01 23:59:00 Outpatient R MANNIE [facility] [id number] [facility] 2019-09-01 07:53:00 2019-09-01 23:59:00 Hospital Encounter Mannie [facility] ([facility]) 1..114 350.1.13.10 4.2.7.2.686 [id number] [facility] 2019-08-26 00:00:00 2019-08-26 00:00:00 Telephone Braeden Martinez [facility] HEAT TREAT TECHNICIAN [facility] MATERNAL & CHILD [facility] 1..114 350.1.13.10 4.2.7.2.686 [id number] [facility] 2019-08-11 12:30:00 2019-08-11 12:30:00 Outpatient REGINA RICHARDS [facility] [id number] [facility] 2019-08-09 00:00:00 2019-08-09 00:00:00 Refill Margi Moore [facility] HEAT TREAT TECHNICIAN [facility] MATERNAL & CHILD [facility] 1..114 350.1.13.10 4.2.7.2.686 [id number] [facility] 2019-07-21 08:32:14 2019-07-21 15:58:11 Telemedici ne Visit Evin [place] [facility] Office Building 1..114 350.1.13.10 4.2.7.2.686 [id number] [facility] 2019-07-21 10:30:00 2019-07-21 10:30:00 Outpatient EVIN DEWITT [facility] [id number] [facility] 2019-07-21 00:00:00 2019-07-21 00:00:00 Telephone Mannie [facility] Office Building [id number] 350.1.13.10 4.2.7.2.686 [id number] [facility] 2019-07-21 00:00:00 2019-07-21 00:00:00 Telephone Mannie [facility] Office Building [id number] 350.1.13.10 4.2.7.2.686 [id number] [facility] 2019-07-15 11:20:00 2019-07-15 11:20:00 Outpatient REGIAN RICHARDS [facility] [id number] [facility] 2019-07-14 08:40:15 2019-07-14 08:56:13 Nurse Visit Visit, Jensenchp Braeden Hart [facility] HEAT TREAT TECHNICIAN [facility] & CHILD [facility] 1.284.114 350.1.13.10 4.2.7.2.686 [id number] [facility] 2019-07-14 07:52:30 2019-07-14 08:56:01 Office Visit SusanPed_Tem Braeden Mckinnon [facility] HEAT TREAT TECHNICIAN [facility] & CHILD [facility] 1..114 350.1.13.10 4.2.7.2.686 [id number] [facility] 2019-07-14 08:00:00 2019-07-14 08:00:00 Outpatient BRAEDEN THOMPSON [facility] [id number] [facility] 2019-07-02 14:37:56 2019-07-07 08:41:53 Billing Encounter Margi Moore [facility] HEAT TREAT TECHNICIAN [facility] & [facility]ILD [facility] [id number] 350.1.13.10 4.2.7.2.686 [id number] 107 [id number] [facility] 2019-07-02 13:46:18 2019-07-06 08:24:51 Office Visit Margi Moore [facility] HEAT TREAT TECHNICIAN [facility] & CHILD [facility] [id number] 350.1.13.10 4.2.7.2.686 [id number] [facility] 2019-07-02 13:00:00 2019-07-02 13:00:00 Outpatient R MARGI MOORE [facility] [id number] [facility] 2019-07-02 00:00:00 2019-07-02 00:00:00 Orders Only Doctor Unassigned, [place] MAMMOTH [facility] [id number] [facility] Results Test Description Test Time Test Comments Results Result Comments Source CT Abdomen pelvis wo contrast 2024-03 16:29:4 1 EXAM: CT ABDOMEN AND PELVIS WITH CONTRAST HISTORY: 23-year-old male with hematuria. COMPARISON: Renal ultrasound 09/01/2019 TECHNIQUE AND FINDINGS: Contiguous axial imaging from the level of the lungbases through the pubic symphysis was performed after the uncomplicatedadministration of intravenous contrast. Coronal and sagittalreconstructions were obtained. FINDINGS: LOWER THORAX: The lungs bases are clear. No cardiomegaly. LIVER: No focal hepatic lesions. ?No biliary ductal dilation. GALLBLADDER AND BILIARY TREE: No biliary ductal dilation. ?No gallbladderwall thickening. SPLEEN: No splenomegaly. PANCREAS: No ductal dilation or masses. ADRENAL GLANDS: No adrenal nodules. KIDNEYS: No hydronephrosis, stones, or masses. PERITONEUM AND RETROPERITONEUM: No free air or fluid. LYMPH NODES: No lymphadenopathy. GI TRACT: No dilation or wall thickening. The appendix as visualized andappears normal PELVIS/BLADDER: The urinary bladder has a clear lumen. No lithiasis noted. VESSELS: Unremarkable. BONES AND SOFT TISSUES: No suspicious lytic or sclerotic bony lesions. [facility] CT SOFT TISSUE NECK W CONTRAST 2023-08 04:00:4 1 Exam: CT Neck With Contrast, 09/15/2023 9:00 PM. Ordering Physician: ANGEL WHITEHEAD. History: Right sore throat. Comparison: None. Technique: CT neck was obtained with intravenous contrast. ?CT wasperformed according to ALARA (As Low As Reasonably Achievable). Technical Quality: Adequate. Findings: Aerodigestive Tract: Aerodigestive tract is patent. Oral and nasal cavitystructures are within normal limits. There is diffuse soft tissue swellingand increased enhancement involving the pharyngeal mucosal space at thelevel of the nasopharynx and oropharynx. Adenoids are enlarged, causingmild narrowing of the nasopharyngeal airway. There is mild enlargement ofthe bilateral palatine tonsils, which results in moderate narrowing of theoropharyngeal airway. Hypodense structure with peripheral soft tissueenhancement is seen in the right peritonsillar soft tissues, measuring upto 1.3 x 1.0 x 1.4 cm. Hypopharynx is normal. Larynx is normal. Deep Fascial Spaces: Parapharyngeal spaces are normal. Retropharyngealspace is normal. Histologist Technologist spaces are normal. Buccal spaces are normal.Submandibular and sublingual spaces are normal. Superficial Fascial Spaces: Unremarkable. Vascular: ?Enlarged bilateral level IIA lymph nodes measure up to 2.8 cm inlong axis. Enlarged right level IIB lymph nodes measure up to 1.9 cm inlong axis on the right and 1.6 cm and the left. Enlarged right level IIIlymph nodes measure up to 2.0 cm in long axis. Lymph Nodes: No enlarged lymph nodes are seen. Glands: Parotid and submandibular glands are normal. Thyroid gland isunremarkable. Sinuses/Mastoid/Orbits: Visualized paranasal sinuses are clear. There is nosignificant mastoid air cell opacification. Visualized orbits areunremarkable. Intracranial Structures: Visualized intracranial contents are unremarkable. Upper Chest: Visualized esophagus, trachea, and superior mediastinum arewithin normal limits. Visualized lungs are clear. Osseous: Unremarkable. [facility] with Ihqe2230-03-17 02:53:13* Test Item Value Reference Range Interpretation Comme nts WBC (test code = 6690-2) 9.64 4.20-10.70 RBC (test code = 789-8) 4.84 4.26-5.52 HGB (test code = 718-7) 14.6 g/dL 12.2-16.4 HCT (test code = 4544-3) 43.0 % 38.4-49.3 MCV (test code = 787-2) 88.8 fL 81.7-95.6 MCH (test code = 785-6) 30.2 pg 26.1-32.7 MCHC (test code = 786-4) 34.0 g/dL 31.2-35.0 RDW-SD (test code = 84301-5) 37.6 fL 38.5-51.6 L RDW-CV (test code = 788-0) 11.7 % 12.1-15.4 L PLT (test code = 777-3) 308 150-328 MPV (test code = 69097-0) 8.8 fL 9.8-13.0 L NRBC/100 WBC (test code = 8682706008) 0.0 0.0-10.0 NRBC x10^3 (test code = 5080485563) See_Comment [Automated messa ge] The system which generated this result transmitted reference range: 10*3/?L. The reference range was not used to interpret this result as normal/abnormal. GRAN MAT (NEUT) % (test code = 770-8) 72.6 % IMM GRAN % (test code = 2700209819) 0.60 % LYMPH % (test code = 736-9) 17.8 % MONO % (test code = 5905-5) 8.5 % EOS % (test code = 713-8) 0.2 % BASO % (test code = 706-2) 0.3 % GRAN MAT x10^3(ANC) (test code = 8440696014) 6.99 10*3/uL 1.99-6.95 H IMM GRAN x10^3 (test code = 1513106849) 0.06 10*3/uL 0.00-0.06 LYMPH x10^3 (test code = 731-0) 1.72 10*3/uL 1.09-3.23 MONO x10^3 (test code = 742-7) 0.82 10*3/uL 0.36-1.02 EOS x10^3 (test code = 711-2) 0.06-0.53 L BASO x10^3 (test code = 704-7) 0.03 10*3/uL 0.01-0.09 Lab Interpretation (test code = 17438-3) Abnormal [facility] Notes Date/Time Note Provider Source 2024-10-25 14:33:55 Chief Complaint Patient presents with New Patient Establish Care Was at work on Friday and felt faint and fogy minded. He needs a note to return to work Juanis Meraz LVN T [facility] 2024-05-14 14:30:48 Contact was made with Oleg Houston on 05/14/2024 14:31 and informed of lab results/recommendations/RX 's per Provider notes. All was verbalized understanding. RX's were resent to [facility] per patient request. [facility] 2024-05-14 12:04:50 Oleg Houston is a 24 year old male would like a call back to discuss lab results Please advise [phone] [facility] 2024-05-14 11:51:31 Attempt to contact. Left voicemail to return clinics call. My chart message sent [facility] 2024-05-14 11:44:52 Pt has H pylori infection its a bacteria in the stomach. In order to tx we have to give 3 medications. All 3 must be taken together in order to get rid of the bacteria. I sent amoxicillin take 2 pills BID for 14 days, Clarithromycin 1 pill bid for 14 days and pantoprazole take 1 pill bid for 14 days. We will do a breath test 6 weeks after tx to make sure bacteria is gone. Stop omeprazole for now [facility] 2024-05-12 11:15:00 Images from the original note were not included. Venipuncture collection performed by clean technique on the left anticubitus. Total of 1 attempts were made. Slight pressure and a bandage/dressing were applied to the site(s). The patient experienced no complications. The following specimens were processed according to instructions and sent to [facility] laboratories per lab order on 05/12/2024 : LT BLUE SST 3SST 1 LT GREEN RED LAV 1 PPT DK GREEN (LiHep) 1 DK GREEN (SodH) HAGEN DK BLUE (K2) DK BLUE (S) ACD Blood Culture NIPT/NTD Breath Test complete Shari Belcher 05/12/2024 10:54 AM [facility] 2024-04-05 11:06:00 Patient dc home. Follow up with pcp. Verbalized understanding. Carreon RN [facility] 2024-04-05 08:23:34 Patient reports dysuria and slight bleeding in urine this morning. He states he has had pain in the shaft of his penis but not that bad for about 3 months. Wyatt RN [facility] 2023-09-16 00:01:28 Pt given printed and verbal discharge instructions regarding strep pharyngitis, & tonsillitis. Prescriptions provided. Discussed ibuprofen and to take with food to avoid GI distress. Discussed antibiotic therapy and to take until all completed unless adverse reaction occurs - if occurs, discontinue medication and follow up with pcp/seek medical attention Pt verbalized understanding of instructions, pt awake alert oriented, resp reg unlabored, skin w/d, color appropriate for race, moves all ext well,pt encouraged to follow up with pcp. Advised to seek medical attention for new/prolonged/worsening of symptoms. No adverse reaction to meds given in ER noted upon discharge. PIV d'cd, dressing to site, catheter in tact. Awake, alert oriented, resp reg unlabored, skin w/d, pt leaving amb with steady gait, in no apparent distress. Marine Reyes RN [facility] 2023-09-15 20:37:21 Pt arrived ambulatory without assist. Pt states "My tonsil on my right side has been bothering me for a couple days." Chucky Escobedo RN [facility] 2023-07-10 05:53:57 Pt dc'd home ambulatory with family member. Pt educated on need for fever reducing meds every 6 hours. Pt v/u of dc instructions. [facility] 2023-07-10 04:51:30 Pt arrived ambulatory with complaints of "not feeling right." Pt was diagnosed with Flu on 07/06 and states for the past 3 days he's just felt bad and had a sore throat and tonight he couldn't sleep. No meds taken since 4pm. Michelle Gutierrez RN [facility] 2023-07-10 04:45:00 [facility] Emergency Department Note Demographics Patient Name: Oleg Houston Date of : 2000 23 year old [id number] Primary Care Physician: Karla [facility] Patient Escorted by: Family [5] Mode of Arrival: Personal means [1] EMS Treatment Prior to ED Arrival: COPYIST treatment: None ED Events Date/Time Event User Comments 07/10/23454 Medical Screening Begins PAMELLA BELLAMY MD -- 07/10/23454 First Provider Evaluation PAMELLA BELLAMY MD -- Chief complaint Chief Complaint Patient presents with FLU + 07/06 ED Triage Notes Michelle Gutierrez, RN 07/10/2023 04:58 Pt arrived ambulatory with complaints of "not feeling right." Pt was diagnosed with Flu on 07/06 and states for the past 3 days he's just felt bad and had a sore throat and tonight he couldn't sleep. No meds taken since 4pm. Original note by Michelle Gutierrez, RN at 07/10/2023 04:53 Chief Complaint Patient presents with FLU + 07/06 History of present illness HPI 23 yo man comes to the ED complaining of cough, congestion, and body aches. He was recently diagnosed with the flu. No chronic medical problems or medications. H/o anxiety, depression, and drug abuse. BP 117/68 | Pulse 104 | Temp 38.3 ?C (100.9 ?F) (Oral) | Resp 20 | Ht 1.651 m (5' 5") | Wt 64.5 kg (142 lb 3.2 oz) | SpO2 96% | BMI 23.66 kg/m? Past Medical and Social History Past Medical History: Diagnosis Date Anxiety 06/03/2019 on meds rx Behavior control problems associated with use of recreational drug 07/02/2019 Depression 06/03/2019 on rx meds Elevated blood pressure reading without diagnosis of hypertension 07/02/2019 History of being tatooed 07/02/2019 History of drug dependence/abuse 07/02/2019 Tetanus received in last 5 years: Unknown Social History Tobacco Use Smoking status: Some Days Types: Cigarettes Smokeless tobacco: Never Vaping Use Vaping Use: Never used Substance Use Topics Alcohol use: Never Drug use: Not Currently Types: Marijuana Comment: Marijuana use in the past Past Surgical History History reviewed. No pertinent surgical history. Medications Medications acetaminophen (TYLENOL) tablet 650 mg (650 mg Oral Given 07/10/23 1747) ibuprofen (IBU) tablet 600 mg (600 mg Oral Given 07/10/23 9599) Allergies No Known Allergies Review of Systems Review of Systems Constitutional: Negative. HENT: Negative. Eyes: Negative. Respiratory: Positive for cough. Breasts: Negative. Cardiovascular: Negative. Gastrointestinal: Negative. Genitourinary: Negative. Musculoskeletal: Negative. Skin: Negative. Neurological: Negative. Psychiatric/Behavioral: Negative. Endocrine: Endocrine negative Physical Exam BP 117/68 | Pulse 104 | Temp 38.3 ?C (100.9 ?F) (Oral) | Resp 20 | Ht 1.651 m (5' 5") | Wt 64.5 kg (142 lb 3.2 oz) | SpO2 96% | BMI 23.66 kg/m? Physical Exam Vitals and nursing note reviewed. Constitutional: General: He is not in acute distress. Appearance: He is well-developed. He is not ill-appearing. HENT: Head: Normocephalic and atraumatic. Right Ear: Ear canal and external ear normal. Left Ear: Ear canal and external ear normal. Nose: Congestion and rhinorrhea present. Mouth/Throat: Mouth: Mucous membranes are moist. Pharynx: Oropharynx is clear. No oropharyngeal exudate or posterior oropharyngeal erythema. Eyes: General: Right eye: No discharge. Left eye: No discharge. Conjunctiva/sclera: Conjunctivae normal. Pupils: Pupils are equal, round, and reactive to light. Cardiovascular: Rate and Rhythm: Normal rate and regular rhythm. Pulses: Normal pulses. Heart sounds: Normal heart sounds. No murmur heard. No friction rub. Pulmonary: Effort: Pulmonary effort is normal. No respiratory distress. Breath sounds: Normal breath sounds. No stridor. No wheezing or rhonchi. Abdominal: General: Bowel sounds are normal. There is no distension. Palpations: Abdomen is soft. There is no mass. Tenderness: There is no abdominal tenderness. Hernia: No hernia is present. Musculoskeletal: General: No swelling, tenderness, deformity or signs of injury. Normal range of motion. Cervical back: Normal range of motion and neck supple. No rigidity or tenderness. Skin: General: Skin is warm and dry. Capillary Refill: Capillary refill takes less than 2 seconds. Coloration: Skin is not jaundiced or pale. Findings: No bruising or erythema. Neurological: General: No focal deficit present. Mental Status: He is alert and oriented to person, place, and time. Cranial Nerves: No cranial nerve deficit. Sensory: No sensory deficit. Motor: No weakness. Coordination: Coordination normal. Psychiatric: Mood and Affect: Mood normal. Behavior: Behavior normal. Thought Content: Thought content normal. Judgment: Judgment normal. Labs and Studies Lab Results - No data to display No orders to display Orders and Treatments No orders of the defined types were placed in this encounter. Orders Placed This Encounter Medications acetaminophen (TYLENOL) tablet 650 mg ibuprofen (IBU) tablet 600 mg Patient's Medications START taking these medications No medications on file CONTINUE taking these medications which have NOT CHANGED FLUOXETINE 20 MG TABLET Take 1 tablet by mouth in the morning. NAPROXEN 500 MG TABLET Take 1 tablet by mouth in the morning and 1 tablet in the evening. Take with meals. Do all this for 5 days. OMEPRAZOLE 40 MG CAPSULE Take 1 capsule by mouth in the morning. ONDANSETRON 4 MG DISINTEGRATING TABLET Take 1 tablet by mouth every 8 (eight) hours as needed for Nausea and Vomiting (N/V). OSELTAMIVIR 75 MG CAPSULE Take 1 capsule by mouth in the morning and 1 capsule in the evening. Do all this for 5 days. START taking Modified Medications as Prescribed No medications on file STOP taking these medications No medications on file Procedures Procedures Evidence Care MDM & Notes Patient was evaluated for an emergency medical condition related to FLU (+ 07/06) . History and/or review of systems is limited by:History limited: None. Medical Decision Making 23 yo man comes to the ED complaining of cough, congestion, and body aches. He was recently diagnosed with the flu. No chronic medical problems or medications. H/o anxiety, depression, and drug abuse. BP 117/68 | Pulse 104 | Temp 38.3 ?C (100.9 ?F) (Oral) | Resp 20 | Ht 1.651 m (5' 5") | Wt 64.5 kg (142 lb 3.2 oz) | SpO2 96% | BMI 23.66 kg/m? DDx include but not limited to: 1. URI 2. Viral illness 3. Covid 4. flu Plan: tylenol,motrin, OTC medications as needed, f/u with PCP and return to the ED if worsening of symptoms. Problems Addressed: Upper respiratory tract infection, unspecified type: acute illness or injury Risk OTC drugs. Prescription drug management. Diagnosis/Impression as of 07/10/23 0557 Upper respiratory tract infection, unspecified type Case discussed with: none Barriers & Social Determinants of Healthcare: none Limitations to patient care and compliance: none. History, physical exam findings, results of visit, differential diagnosis, medication regimens and plan of future care have been considered. Additional MDM may be found in the ED course. Differential diagnosis considered and final disposition made based on information gathered during evaluation and may not be completely ruled out or specifically listed. Vital signs were rechecked before final disposition and determined to be stable. Diagnoses ICD-10-CM 1. Upper respiratory tract infection, unspecified type J06.9 Disposition and Condition ED Disposition ED Disposition Disch - Home Condition Stable Comment -- Patient's Medications START taking these medications No medications on file CONTINUE taking these medications which have NOT CHANGED FLUOXETINE 20 MG TABLET Take 1 tablet by mouth in the morning. NAPROXEN 500 MG TABLET Take 1 tablet by mouth in the morning and 1 tablet in the evening. Take with meals. Do all this for 5 days. OMEPRAZOLE 40 MG CAPSULE Take 1 capsule by mouth in the morning. ONDANSETRON 4 MG DISINTEGRATING TABLET Take 1 tablet by mouth every 8 (eight) hours as needed for Nausea and Vomiting (N/V). OSELTAMIVIR 75 MG CAPSULE Take 1 capsule by mouth in the morning and 1 capsule in the evening. Do all this for 5 days. START taking Modified Medications as Prescribed No medications on file STOP taking these medications No medications on file [employer] is used frequently and may produce errors. Promptly contact for obvious discrepancies. Pamella Bellamy MD, FACEP, FAAEM Director Of Search Engine Optimization of Emergency and Internal Medicine [facility], [facility] #[id number] Pamella Bellamy MD 07/10/23 0557 [facility] 2023-07-07 15:28:44 PT D/C home. GCS15, VS stable. Given D/C paperwork. Pt ambulatory at time of discharge. Pt educated on med usage, follow up care, s/s worsening condition, need for hydration. Pt verbalized understanding. Angela Cabrera RN [facility] 2023-07-07 13:56:41 Patient reports waking up with headache and coughing and general malaise. Had Mucinex COPYIST. Jas Wyatt RN [facility] 2023-01-14 08:45:00 Formatting of this n ote is different from the original. Images from the original note were not included. Venipuncture collection performed by clean technique on the right anticubitus. Total of 1 attempts were made. Slight pressure and a bandage/dressing were applied to the site(s). The patient experienced no complications. The following specimens were processed according to instructions and sent to [facility] laboratories per lab order on 01/14/2023 : LT BLUE SST 2 RED LAV 1 PPT DK GREEN (LiHep) DK GREEN (SodH) HAGEN DK BLUE (K2) DK BLUE (S) ACD Blood Culture NIPT/NTD [facility]
[2025-01-23] MEDS ORDERED: DOXYCYCLINE 100 MG CAP PO ONE (13:49)
[2025-01-23] MEDS ORDERED: CEFTRIAXONE 500 MG/VIAL ONE (13:49)
[2025-01-23] MEDS ORDERED: LIDOCAINE 1% MPF 5 ML VIAL ONE (13:49)
--- NOTE | 2025-01-23 14:10 | EDPHYS ---
Physician Documentation [facility] Name: Oleg Greenfield Age: 24 yrs Sex: Male : 2000 Arrival Date: 01/23/2025 Time: 13:29 Bed 4 Private MD: ED Physician Jolynn Stone HPI: 01/23 14:30 This 24 yrs old Male presents to ER via Ambulatory with complaints of STD dr5 Exposure. 14:30 Onset: The symptoms/episode began/occurred acutely. Patient is a 24-year-old male with dr5 history of anxiety coming in with concerns for possible sexual transmitted infection. Patient reports his girlfriend was diagnosed with chlamydia a couple weeks ago and was treated for it. Patient denies any symptoms such as testicular pain, penile discharge, rash around penis or suprapubic area. Patient denies pain. Historical: - Allergies: 13:50 No Known Allergies; jb4 - PMHx: 13:50 Anxiety; jb4 - PSHx: 13:50 None; jb4 - Immunization history:: Adult Immunizations up to date. - Infectious Disease History:: Denies. - Social history:: Smoking status: Reported history of juuling and/or vaping. ROS: 14:30 Constitutional: as per hpi dr5 Exam: 14:55 Constitutional: This is a well developed, well nourished patient who is awake, alert, dr5 and in no acute distress. Head/Face: Normocephalic, atraumatic. Eyes: Pupils equal round and reactive to light, extra-ocular motions intact. Lids and lashes normal. Conjunctiva and sclera are non-icteric and not injected. Cornea within normal limits. Periorbital areas with no swelling, redness, or edema. Neck: Trachea midline, no thyromegaly or masses palpated, and no cervical lymphadenopathy. Supple, full range of motion without nuchal rigidity, or vertebral point tenderness. No Meningismus. Chest/axilla: Normal chest wall appearance and motion. Nontender with no deformity. No lesions are appreciated. Cardiovascular: Regular rate and rhythm with a normal S1 and S2. Normal PMI, no JVD. No pulse deficits. Respiratory: Lungs have equal breath sounds bilaterally, clear to auscultation. No rales, rhonchi or wheezes noted. No increased work of breathing, no retractions or nasal flaring. Back: No spinal tenderness. No costovertebral tenderness. Full range of motion. Skin: Warm, dry with normal turgor. Normal color with no rashes, no lesions, and no evidence of cellulitis. MS/ Extremity: Pulses equal, no cyanosis. Neurovascular intact. Full, normal range of motion. Neuro: Awake and alert, GCS 15, oriented to person, place, time, and situation. Cranial nerves II-XII grossly intact. Motor strength 5/5 in all extremities. Sensory grossly intact. Cerebellar exam normal. Normal gait. Vital Signs: 13:48 BP 120 / 60; Pulse 79; Resp 16; Temp 98(O); Pulse Ox 98% on R/A; Weight 63.5 kg (R); jb4 Height 5 ft. 6 in. ; 13:48 Body Mass Index 22.60 (63.50 kg, 167.64 cm) jb4 MDM: 13:34 Medical Screening Exam initiated dr5 14:55 Differential diagnosis: viral Infection, bacterial infection, URI. Data reviewed: vital dr5 signs, nurses notes. Consideration of Admission/Observation Escalation of care including admission/observation considered. Escalation considered if patient found to have fever or symptoms such as discharge or testicular pain. I considered the following discharge prescriptions or medication management in the emergency department I discussed and recommended Over The Counter medications, Medications were administered in the Emergency Department. See MAR. Care significantly affected by the following chronic conditions: Anxiety. Care significantly affected by the following Social Determinants of Health: Poor access to healthcare and/or lack of insurance, Poor access to transportation, Problems related to employment. Counseling: I had a detailed discussion with the patient and/or guardian regarding the historical points, exam findings, and any diagnostic results supporting the discharge/admit diagnosis, the presence of at least one elevated blood pressure reading (>120/80) during this emergency department visit, the need for outpatient follow up, for definitive care, a family practitioner, to return to the emergency department if symptoms worsen or persist or if there are any questions or concerns that arise at home. Special discussion: I discussed with the patient/guardian in detail that at this point there is no indication for admission to the hospital. It is understood, however, that if the symptoms persist or worsen the patient needs to return immediately for re-evaluation. Based on the history and exam findings, there is no indication for further emergent testing or inpatient evaluation. I discussed with the patient/guardian the need to see the primary care provider for further evaluation of the symptoms. ED course: Recommended patient follow-up with [facility] for free STD clinic on Tuesdays. I printed out instructions with hours and address of facility. Rocephin given in ER as well as doxycycline for gonorrhea and chlamydia treatment. Recommended patient not have intercourse until completed antibiotics as well as partner tested. Patient verbalized understanding. All question answered. Strict ER precautions given.. Administered Medications: 13:59 Drug: Rocephin (cefTRIAXone) IM 500 mg IM once Route: IM; Site: left gluteus; nh2 14:17 Follow up: Response: No adverse reaction bp 13:59 Drug: Doxycycline PO 100 mg PO once Route: PO; nh2 14:17 Follow up: Response: No adverse reaction bp Disposition Summary: 01/23/25 14:10 Discharge Ordered Notes: Location: Home dr5 Condition: Stable dr5 Diagnosis - Unspecified sexually transmitted disease dr5 Followup: dr5 - With: Emergency Department - When: As needed - Reason: Worsening of condition Followup: dr5 - With: Private Physician - When: 1 - 2 days - Reason: Recheck today's complaints, Continuance of care, Re-evaluation by your physician Discharge Instructions: - Discharge Summary Sheet dr5 - Preventing Sexually Transmitted Infections, Adult dr5 Forms: - Medication Reconciliation Form dr5 - Antibiotic Education dr5 - Patient Portal Instructions dr5 - Leadership Thank You Letter dr5 Prescriptions: - Doxycycline Hyclate 100 mg Oral Tablet - take 1 tablet ORAL route every 12 hours; 20 tablet; Refills: 0, Product dr5 Selection Permitted Signatures: Colin Guy RN RN jb4 Melo Pennington Jr, RN RN nh2 Ralph Aguila, CELLAR PACKER-C CELLAR PACKER-5 Waldemar Alvarez RN bp
--- NOTE | 2025-01-23 14:10 | ER ---
Nurse's Notes [facility] Name: Oleg Greenfield Age: 24 yrs Sex: Male : 2000 Arrival Date: 01/23/2025 Time: 13:29 Bed 4 Private MD: Diagnosis: Unspecified sexually transmitted disease Presentation: 01/23 13:48 Chief complaint: Patient states: I had Chlamydia recently. I am worried it came back. I jb4 would like a full STD panel if possible. Coronavirus screen: At this time, the client does not indicate any symptoms associated with coronavirus-19. Ebola Screen: No symptoms or risks identified at this time. Initial Sepsis Screen: Does the patient meet any 2 criteria? No. Patient's initial sepsis screen is negative. Does the patient have a suspected source of infection? No. Patient's initial sepsis screen is negative. Risk Assessment: Do you want to hurt yourself or someone else? Patient reports no desire to harm self or others. Onset of symptoms was January 23, 2025. Transition of care: patient was not received from another setting of care. 13:48 Method Of Arrival: Ambulatory jb4 13:48 Acuity: TOÑITO 5 jb4 Triage Assessment: 13:50 General: Appears in no apparent distress. Behavior is appropriate for age. Pain: Denies bp pain. EENT: No deficits noted. Neuro: No deficits noted. Cardiovascular: No deficits noted. Respiratory: No deficits noted. GI: No signs and/or symptoms were reported involving the gastrointestinal system. : Reports burning with urination. Derm: No deficits noted. Musculoskeletal: No deficits noted. Historical: - Allergies: 13:50 No Known Allergies; jb4 - PMHx: 13:50 Anxiety; jb4 - PSHx: 13:50 None; jb4 - Immunization history:: Adult Immunizations up to date. - Infectious Disease History:: Denies. - Social history:: Smoking status: Reported history of juuling and/or vaping. Screenin:45 [facility] ED Fall Risk Assessment (Adult) History of falling in the last 3 months, nh2 including since admission No falls in past 3 months (0 pts) Confusion or Disorientation No (0 pts) Intoxicated or Sedated No (0 pts) Impaired Gait No (0 pts) Mobility Assist Device Used No (0 pt) Altered Elimination No (0 pt) Score/Fall Risk Level 0 - 2 = Low Risk Oriented to surroundings, Maintained a safe environment, Educated pt \T\ family on fall prevention, incl call for assistance when getting out of bed, Assessed \T\ reinforced patient's understanding of fall precautions. Abuse screen: Denies threats or abuse. Denies injuries from another. Nutritional screening: No deficits noted. Tuberculosis screening: No symptoms or risk factors identified. Assessment: 13:45 General: Appears in no apparent distress. Behavior is calm, cooperative, appropriate nh2 for age. Pain: Denies pain. Neuro: Level of Consciousness is awake, alert, obeys commands, Oriented to person, place, time, situation, Denies weakness headache. Cardiovascular: Denies chest pain, Patient's skin is warm and dry. Respiratory: Airway is patent Trachea midline Respiratory effort is even, unlabored, Respiratory pattern is regular, symmetrical, Denies cough, shortness of breath. GI: Abdomen is flat, non-distended, Patient currently denies nausea, vomiting. : Reports burning with urination. EENT: No signs and/or symptoms were reported regarding the EENT system. Derm: Skin is intact, is healthy with good turgor. Musculoskeletal: Circulation, motion, and sensation intact. Range of motion: intact in all extremities. Vital Signs: 13:48 BP 120 / 60; Pulse 79; Resp 16; Temp 98(O); Pulse Ox 98% on R/A; Weight 63.5 kg (R); jb4 Height 5 ft. 6 in. ; 13:48 Body Mass Index 22.60 (63.50 kg, 167.64 cm) jb4 ED Course: 13:32 Patient arrived in ED. sj2 13:34 Ralph Aguila FNP-C [facility]. dr5 13:34 Jolynn Stone MD is Attending Physician. dr5 13:43 Melo Pennington Jr, ROSI is Primary Nurse. nh2 13:45 Patient has correct armband on for positive identification. Bed in low position. Call nh2 light in reach. Side rails up X 1. Provided Education on: using call light for assistance. 13:45 No provider procedures requiring assistance completed. Patient did not have IV access nh2 during this emergency room visit. 13:50 Triage completed. jb4 13:50 Arm band placed on right wrist. jb4 Administered Medications: 13:59 Drug: Rocephin (cefTRIAXone) IM 500 mg IM once Route: IM; Site: left gluteus; nh2 14:17 Follow up: Response: No adverse reaction bp 13:59 Drug: Doxycycline PO 100 mg PO once Route: PO; nh2 14:17 Follow up: Response: No adverse reaction bp Medication: 13:45 VIS not applicable for this client. nh2 Outcome: 14:10 Discharge ordered by MD. dr5 14:16 Discharged to home ambulatory, bp 14:16 Condition: stable 14:16 Discharge instructions given to patient, Instructed on discharge instructions, follow up and referral plans. medication usage, Demonstrated understanding of instructions, follow-up care, medications, Prescriptions given X 1, 14:17 Patient left the ED. bp Signatures: Colin Guy, RN RN jb4 Waldemar Alvarez RN RN bp Melo Pennington Jr, RN RN nh2 Manolo Calabrese 2 Ralph Aguila, EMERGENCY ROOM REGISTERED NURSE-C EMERGENCY ROOM REGISTERED NURSE-Cdr5
[2025-01-23 14:27] VITALS: BP 120/60; TEMP 98; O2SAT 98
== END 2025-01-23 14:17 | disposition home or self-care (01) ==
LOC: ER 13:29
DX: A64 Unspecified sexually transmitted disease (principal)
CPT/HCPCS: 96372; 99284; J0696; J2003